=== PATIENT | female | born 1990 | race Caucasian/White ===

== ENCOUNTER 2020-03-05 09:49 | Outpatient (CLI) | payer OTHER, SELFPAY ==
[2020-03-05 11:00] LABS: Beta HCG Quantitative 28.32 mIU/ML
[2020-03-09 05:43] LABS: Progesterone 20.2 ng/mL (***)
== END 2020-03-05 09:50 | disposition home or self-care (01) ==
PROVIDERS: PCP Family Medicine; Visit Provider Obstetrics & Gynecology
DX: Z32.00 Encounter for pregnancy test, result unknown (principal)
CPT/HCPCS: 36415; 84144; 84702

== ENCOUNTER 2020-03-12 08:00 | Outpatient (CLI) | payer OTHER, SELFPAY | END 2020-03-12 08:01 | disposition home or self-care (01) | PROVIDERS: PCP Family Medicine; Visit Provider Obstetrics & Gynecology | DX: Z32.00 Encounter for pregnancy test, result unknown (principal) | CPT/HCPCS: 36415; 84702 ==

== ENCOUNTER 2020-11-07 04:58 | Inpatient (IN) | payer OTHER, SELFPAY ==
[2020-11-07] VITALS (48 sets, daily range): BP systolic 90–133; BP diastolic 48–87; PULSE 74–154; RESP 15–18; TEMP 36.6–37.1; O2SAT 96–99; BMI 30.9
--- NOTE | 2020-11-07 05:23 | LDADM ---
This patient, Chela Tirado, was admitted to Labor/Delivery/Recovery 105 on 11/07/20 at 04:58. Plans for labor, pain management and were discussed with patient. Patient/family oriented to hospital policies and general routines including ID bracelet, bed and alarms, visiting hours, pain management, procedures, bathroom and other care routines, personal items, smoking policy, room service/diet and guest tray routines, security routines, and visiting hours. Patient/Family are encouraged to report perceived risks to care and to ask questions if they do not understand what they are told or what they should do. See OBIX for further documentation.
[2020-11-07] MEDS: ceFAZolin 2 GM/D5W 50 ML 2 GM/50 ML BAG IVPB (05:27)
[2020-11-07 05:31] LABS: Basophils Percent Auto 0.4 % (0.2-1.2); Eosinophils Absolute Auto 0.2 K/mm3 (0-0.3); Eosinophils Percent Auto 1.5 % (0-4.4); Hematocrit 38.2 % (37.0-47.0); Hemoglobin 12.5 g/dL (12.0-15.0); Immature Granulocyte Absolute 0.06 K/mm3 (0.00-0.031); Immature Granulocyte Percent A 0.6 % (0-0.5); Lymphocytes Absolute Auto 2.73 K/mm3 (0.9-3.2); Lymphocytes Percent Auto 26.4 % (18.3-44.2); Mean Corpuscular HGB Conc 32.7 g/dl (32-36); Mean Corpuscular Hemoglobin 30.8 pg (26-34); Mean Corpuscular Volume 94.1 fl (80-100); Mean Platelet Volume 12.1 fl (7.4-10.4); Monocytes Absolute Auto 0.7 K/mm3 (0.1-0.6); Monocytes Percent Auto 6.8 % (2.6-8.5); Neutrophils Absolute Auto 6.7 K/mm3 (1.3-6.7); Neutrophils Percent Auto 64.3 % (45.5-73.1); Platelet Count Result 154 k/mm3 (150-375); Red Blood Count 4.06 M/mm3 (4.2-5.4); Red Cell Distribution Width 14.2 % (11.5-14.5); White Blood Count 10.3 K/mm3 (4.5-10.0)
[2020-11-07] MEDS: LACTATED RINGERS 1,000 ML 125 ML IV CONT ×2 (05:33→07:45)
[2020-11-07] MEDS: OXYTOCIN 30 UNITS/NS 500 ML 30 UNITS/500 ML BAG IV CONT (05:46)
[2020-11-07] MEDS: FAMOTIDINE 20 MG/2 ML VIAL IV PUSH (06:47)
--- NOTE | 2020-11-07 07:30 | WPDANESEPP ---
Anes - Eval Pre Procedure Procedure: labor epidural Date/Time: 11/07/20 07:30 Surgeon: lisa Pre Op Diagnosis: Induction Patient Data Age: 30 Gender: F Height: 1.68 m Weight: 87 kg Last Vital Signs Temp 36.7 C 11/07/20 06:30 Pulse 94 11/07/20 07:15 BP 127/81 11/07/20 07:15 Allergies Allergy/AdvReac Type Severity Reaction Status Date / Time hydrocodone Allergy Mild rash Verified 10/15/20 12:33 Penicillins Allergy Mild rash Verified 10/15/20 12:33 Home Medications Medication Instructions Recorded Confirmed Type prenat.vits,brian,hsw-idam-lagcv 1 tablet PO HS 10/15/20 10/15/20 History [ #2] Laboratory Tests 11/07/20 11/07/20 11/07/20 05:24 05:24 05:24 WBC 10.3 K/mm3 H K/mm3 (4.5-10.0) RBC 4.06 M/mm3 L M/mm3 (4.2-5.4) Hgb 12.5 g/dL g/dL (12.0-15.0) Hct 38.2 % % (37.0-47.0) MCV 94.1 fl fl (80-100) MCH 30.8 pg pg (26-34) MCHC 32.7 g/dl g/dl (32-36) RDW 14.2 % % (11.5-14.5) Plt Count 154 k/mm3 k/mm3 (150-375) MPV 12.1 fl H fl (7.4-10.4) Immature Gran % (Auto) 0.6 % H % (0-0.5) Neut % (Auto) 64.3 % % (45.5-73.1) Lymph % (Auto) 26.4 % % (18.3-44.2) [place] % (Auto) 6.8 % % (2.6-8.5) Eos % (Auto) 1.5 % % (0-4.4) Baso % (Auto) 0.4 % % (0.2-1.2) Lymph # (Auto) 2.73 K/mm3 K/mm3 (0.9-3.2) [place] # (Auto) 0.7 K/mm3 H K/mm3 (0.1-0.6) Eos # (Auto) 0.2 K/mm3 K/mm3 (0-0.3) Baso # (Auto) 0.0 K/mm3 K/mm3 (0.0-0.1) Abs Immat Gran (auto) 0.06 K/mm3 H K/mm3 (0.00-0.031) Absolute Neuts (auto) 6.7 K/mm3 K/mm3 (1.3-6.7) Absolute Nucleated RBC 0.0 K/mm3 K/mm3 (0.0-0.012) Nucleated RBC % 0.0 % % (0.0-0.2) RPR Pending Blood Type A Positive Antibody Screen Negative Patient hx anesthesia problems: none Family hx anesthesia problems: none [facility] Family History Family History (Updated 10/15/20 @ 12:37 by Minnie Somers RN) Father Hypertension High cholesterol Grandparent Hypertension Metastatic breast cancer Uterine cancer Acute leukemia Heart disease Social History Social History Smoking status: Never smoker Substance use: never Spiritual care concerns: No Exam Day of Procedure 11/07/20 07:30
--- NOTE | 2020-11-07 08:45 | WPDOBADMIT ---
Obstetrics - Admit Note Admission Note: record reviewed. Additions to the history and/or subsequent changes in the physical findings follow. 30 y/o at 39 weeks here for induction of labor. GBS pos. AVSS NST reactive TOCO: contractions every 2-5 min ABD soft, nontender, gravid, vertex EXT nontender Cervix 4/50/-2. AROM with clear fluid. Vertex. A: IUP at 39 weeks with favorable cervix. GBS pos. P: Ancef. Oxytocin. Anticipate .
[2020-11-07 09:49] LABS: Rapid Plasma Reagin Non-Reactive (NonReactive)
--- NOTE | 2020-11-07 10:49 | PM.OBPRVD ---
OB - Delivery Note Procedure Delivery date: 11/07/20 Procedure: Induction of labor with Induction method: AROM and per pitocin protocol Delivery augmentation: pitocin Delivery monitor: external FHT and external uterine Route of delivery: Laceration Description: Perineal - 2nd Degree Delivery repair: vicryl (3-0) Specimen: Yes (cord blood, placenta) Quantitative Blood Loss (ml): 115 Anesthesia type: Epidural Disposition: PACU Complications: None Narrative: 30 y/o at 39 weeks gestation who presented to the hospital for induction of labor. Oxytocin was administered intravenously. She received Ancef intravenously for GBS colonization. Amniotomy was performed with return of clear fluid. She received an epidural for pain control. Her labor progressed and her cervix dilated completely. She pushed with good effort and delivered the infant's head to the perineum, followed by the body. The nose and mouth were bulb suctioned. After a delay, the cord was clamped and cut. The was handed off the field. Cord blood was collected. The placenta delivered spontaneously and was grossly normal in appearance. The usual 3 vessel cord was noted. A second degree midline perineal laceration was sustained. This was reapproximated using 3 0 Vicryl in the usual layered fashion. Excellent hemostasis resulted as did excellent reapproximation of the normal anatomy. Needle and instrument counts were correct. The patient was taken to recovery room in stable condition. The went to the nursery in stable condition. I was present and scrubbed for the entire delivery. Baby Date of : 11/07/20 Time of : 13:08 Weeks of gestation at delivery: 39 Infant gender: Female Weight (pounds): 9 Weight (ounces): 9 presentation: vertex position: Right Occiput Anterior Placenta delivery description: Spontaneous and Normal Configuration cord vessel description: 3 Vessels and Delayed Cord Clamping score one minute: 9 score five minutes: 9
[2020-11-07] MEDS: OXYTOCIN 30 UNITS/NS 500 ML 30 UNITS/500 ML BAG 125 UNITS IV CONT (11:00)
[2020-11-07] MEDS: BENZOCAINE 20% AER SPR (*SP) 56 GM CAN 1 SPRAY TOPICAL (12:33)
[2020-11-07] MEDS: WITCH HAZEL 40 PADS 1 PAD TOPICAL (12:33)
--- NOTE | 2020-11-07 13:06 | OBPPTRN ---
Patient transferred to post room # 285 via wheelchair. Support person present. Oriented to unit, room, information board, rooming in, admission packet and security measures. Patient verbalizes understanding.
--- NOTE | 2020-11-07 13:12 | PM.OBDSVD ---
DS: Admitting Diagnosis Admitting Diagnosis Admitting Diagnosis: IUP at 39 weeks GBS colonization Favorable cervix DS: Discharge Diagnosis Discharge Diagnosis (1) (normal spontaneous vaginal delivery): Code(s): O80 - Encounter for full-term uncomplicated delivery Status: Acute (2) GBS (group B Streptococcus carrier), +RV culture, currently : Code(s): O99.820 - Streptococcus B carrier state complicating Status: Acute OB - DS: Summary OB Procedures : None OB Procedures Intrapartum: Spontaneous Vag Delivery OB Procedures: : None DS: Data Data Completed and Pending Labs on day of discharge: Labs from last 24 hours 11/07/20 11/07/20 11/07/20 05:24 05:24 05:24 WBC 10.3 H RBC 4.06 L Hgb 12.5 Hct 38.2 MCV 94.1 MCH 30.8 MCHC 32.7 RDW 14.2 Plt Count 154 MPV 12.1 H Immature Gran % (Auto) 0.6 H Neut % (Auto) 64.3 Lymph % (Auto) 26.4 [place] % (Auto) 6.8 Eos % (Auto) 1.5 Baso % (Auto) 0.4 Lymph # (Auto) 2.73 [place] # (Auto) 0.7 H Eos # (Auto) 0.2 Baso # (Auto) 0.0 Abs Immat Gran (auto) 0.06 H Absolute Neuts (auto) 6.7 Absolute Nucleated RBC 0.0 Nucleated RBC % 0.0 RPR Non-reactive Blood Type A Positive Antibody Screen Negative Discharge Plan Discharge Attending physician on discharge: Regan Hernandez Discharging Clinician: Regan Heranndez Patient Disposition: Home, Self-Care Activity: pelvic rest Diet: regular Discharge Instructions: Education: Mom and Baby Guide Given to: Mother Follow-Up: Call your delivering provider's office for an appointment to be seen in: 6 Weeks Mom and baby should come [facility] for the follow-up appointment. Appointment Date/Time: November 09, 2020 at 12:00 pm What to expect at your follow-up visit: Blood Pressure Check Physical Assessment Call [phone] if you are unable to keep your appointment time. BREAST CARE: * Wear a snug supportive bra. * For engorgement discomfort: Breast Feeding: * Apply warm moist washcloths * Express milk as needed to relieve engorgement * Wear loose clothing * For sore nipples: * Identify correct latch-on * Apply warm moist washcloths before and after nursing * Air dry nipples after nursing * May apply Lansinoh cream to nipples EPISIOTOMY/PERINEAL CARE: * Until bleeding stops, use your jennie bottle after urinating * Change your pad frequently throughout the day * You may take sitz baths several times a day (fill your bathtub with warm water and soak for 20 minutes.) Do NOT bathe in the water * No tub baths until seen by your physician - You may shower ACTIVITY: * Rest as much as possible. * Do not exercise or lift anything heavier than your baby (such as laundry or other children.) * Avoid stairs or driving as much as possible. * Do not put anything into the vagina. No douching, tampons, or sexual activity until seen by physician. NOTIFY PHYSICIAN IF YOU HAVE ANY QUESTIONS OR IF ANY OF THE FOLLOWING SYMPTOMS OCCUR: * If your vaginal area becomes red, swollen, or more painful than what you have experienced in the hospital. * If your vaginal bleeding becomes foul smelling. * If your vaginal bleeding becomes more heavy than a period or if your bleeding changes from pink to bright red. However, you may pass an occasional walnut-sized clot once or twice for the first week . * If you experience a sharp, shooting pain in your calves. * If you discover a hard, reddened area on your breast or if you experience flu-like symptoms. DIET: * Eat regular, well-balanced meals. * Drink plenty of fluids daily. If , drink to thirst. Call or return if temperature above 100.4? F, increased abdominal pain, increased vaginal bleeding or any new problems.
[2020-11-07] MEDS: IBUPROFEN 600 MG TABLET PO (15:59)
[2020-11-07] MEDS: ACETAMINOPHEN 325 MG TABLET 650 MG PO (19:36)
[2020-11-08] MEDS: IBUPROFEN 600 MG TABLET PO ×3 (00:06→18:38)
[2020-11-08 04:10] VITALS: BP 105/52; PULSE 75; RESP 16; TEMP 36.6; O2SAT 97
[2020-11-08] MEDS: ACETAMINOPHEN 325 MG TABLET 650 MG PO ×2 (04:15→12:40)
[2020-11-08 05:48] LABS: Hematocrit 35.3 % (37.0-47.0); Hemoglobin 11.9 g/dL (12.0-15.0)
--- NOTE | 2020-11-08 07:35 | WPDANLDPN2 ---
Anes-Prog Note L&D Date/Time: 11/08/20 07:35 Comfortable throughout: labor and delivery Neuraxial method: epidural Epidural/Spinal procedure site: tender Neuro status: Neuro function grossly intact. Cardiovascular status: normal Respiratory status: normal Airway patency: baseline Mental status: baseline Post-Op hydration status: normal Vital Signs: Last Vital Signs Temp 97.9 F 11/08/20 04:10 Pulse 75 11/08/20 04:10 Resp 16 11/08/20 04:10 BP 105/52 L 11/08/20 04:10 Pulse Ox 97 11/08/20 04:10 Pain score (VAS): 210 I/O: Intake & Output 11/07/20 11/07/20 11/08/20 15:59 23:59 07:59 Intake Total 1000 Output Total 306 Balance 694 Post-procedural complaints: none Patient feedback: Patient satisfied with anesthetic care.
[2020-11-08 08:15] VITALS: BP 108/65; PULSE 75; RESP 16; TEMP 37.1; O2SAT 98
[2020-11-08] MEDS: MULTIVIT/MIN/PREN/FOL AC/IRON TABLET 1 TAB PO (08:44)
[2020-11-08] MEDS: DOCUSATE SODIUM 100 MG CAPSULE PO (08:44)
[2020-11-08 08:45] VITALS: PULSE 75; RESP 16; O2SAT 98
--- NOTE | 2020-11-08 11:20 | PC.NURSE ---
Consult with pt., mother reports is eagerly latching without difficulties or discomfort. Mother stats she breastfed last child for several months. Reviewed infant feeding cues, frequencies, duration of feedings, feeding elimination flow sheet, and signs of adequate intake. Demonstrated stimulation techniques to wake infant for feeding. Reviewed signs of a correct latch, effective nursing and suck swallow ratio. Infant was[able/unable] to maintain latch without discomfort to mother. Nipple care reviewed. Instructed mother to call out for RN assistance if she is unable to latch infant for feeding or she has discomfort with nursing. Instructed feeding should be initiated three hours from start of last feeding or if feeding cues are noted before. Mother voiced understanding of information shared.
[2020-11-08] MEDS: oxyCODONE/ACETAMINOPHEN (*CRX) 5-325 MG TABLET 1 TABLET PO (13:14)
--- NOTE | 2020-11-08 16:00 | PC.NURSE ---
Mother called out for observation of feeding. Reviewed infant feeding cues, frequencies, duration of feedings, feeding elimination flow sheet, and signs of adequate intake. Demonstrated stimulation techniques to wake for feeding. Mother has to breast in slightly shallow latch reporting slight pinching. Suggested mother release latch. Reviewed positioning/alignment in cross cradle, holding breast in ?U? hold and guided asymmetrical latch on. able to latch correctly. Infant nursed eagerly, with steady draws and frequent swallowing noted. Reviewed signs of a correct latch, effective nursing and suck swallow ratio. Infant would slip to shallow latch, mother reports tenderness. Demonstrated how to adjust latch more deeply while feeding. Mother reports she can feel change in latch and has no tenderness. Nipple care reviewed of lanolin after feedings, warm compresses and gel pads as needed. Suggested mother stimulate while feeding to increase stimulate, increase intake and to assist with maintaining deep latch. Instructed mother to call out for RN assistance if she is unable to latch for feeding or she has discomfort with nursing. Instructed feeding should be initiated three hours from start of last feeding or if feeding cues are noted before. Mother voiced understanding of information shared. Mother states she feels confident to continue effective at home. Reviewed transition to breast milk, signs of adequate intake, and engorgement/relief. Instructed to call ICP if intake/output less than required. Reviewed regular medications mother is taking. Information provided per [facility]. Reviewed community resources on the [facility] website and in the Mom/Baby guide. Information on outpatient services provided. Mother has no further questions at this time.
--- NOTE | 2020-11-08 18:29 | PM.OBPNVD ---
OB - PN: Subj Subjective Date/time seen: 11/08/20 18:29 Narrative: Pain OK. Would like to go home. OB - PN: Obj Data Labs CBC & Chem 7: 11/08/20 04:23 Labs: Laboratory Results - last 24 hr 11/08/20 04:23 Hgb 11.9 L Hct 35.3 L OB - PN A/P Plan Comments: A: PPD#1, doing well. P: Home to f/u 6 weeks. Exam Psych: Other: AVSS ABD soft, nontender, fundus firm EXT nontender
[2020-11-09 12:32] VITALS: BP 116/69; PULSE 66; RESP 14; TEMP 37; O2SAT 98
== END 2020-11-08 19:21 | disposition home or self-care (01) | DRG 807 ==
LOC: ANHLDR 05:08 → ANHOB2 13:09
PROVIDERS: Admitting Provider Obstetrics & Gynecology; PCP Family Medicine; Visit Provider Obstetrics & Gynecology
DX: O99.824 Streptococcus B carrier state complicating childbirth (principal); Z37.0 Single live birth; O70.1 Second degree perineal laceration during delivery; Z3A.39 39 weeks gestation of pregnancy
CPT/HCPCS: 36415; 85014; 85018; 85025; 86592; 86850; 86900; 86901; A9270; J0690; J2590; J2795; J7120

== ENCOUNTER 2024-12-12 10:08 | Observation (INO) | payer OTHER, SELFPAY ==
[2024-12-12] VITALS (7 sets, daily range): BP systolic 99–114; BP diastolic 57–78; PULSE 86–97; RESP 16; O2SAT 98; BMI 29.8
--- OUTSIDE RECORDS SUMMARY | 2024-12-12 10:18 | XMS_ITS | Clinical Summary ---
Author Organization [facility] Address [address] [place] [address] Phone Care Team Providers Care Liner Installer Name Role Phone Gala Marin Primary Care Provider + Allergies Active Allergy Reactions Criticality Noted Date Comments Hydrocodone Hives Reaction: hives, Penicillin G Hives Reaction: hives, Medications Multiple Vitamin (MULTIVITAMIN PO) Take by mouth. Active Active Problems No known active problems Immunizations Immunization Administration Dates Next Due DT Vaccine 01/06/2006,01/19/2003 DTAP/HIB COMBINED VACCINE 06/17/1993 DTAP/HIB/IPV COMBINED VACCINE 10/09/1997 ,03/06/1994,05/01/1993,01/31 Hepatitis A Vaccine 07/05/2012,11/03/2011 Hepatitis B Vaccine 06/17/1993,1992,1992 Human Papillomavirus Vaccine (HPV), quadrivalent 07/14/2007,03/09/2007,01/07/2007 Influenza Vaccine, Quadrivalent, PF 06/17/2021,1 06/27/2019,04/15/2019 MMR Vaccine 10/09/1997,11/28/1993 MMR/Varicella Combined Vaccine 11/03/2011,1998 Meningococcal Polysaccharide Vaccine (MPSV4) 01/07/2007 TB Skin Test 01/21/2021 TDAP Vaccine 09/29/2020, 9,03/17/2017,01/06 Family History Medical History Relation Name Comments High Cholesterol Father High Cholesterol Mother Cancer Paternal Grandfather leukemi a Relation Name Status Comments Father Alive Maternal Grandfather Alive Maternal Grandmother Alive Mother Alive Paternal Grandfather Paternal Grandmother Alive Social History Tobacco Use Types Packs/Day Years Used Date Smoking Tobacco: Never Smokeless Tobacco: Never Tobacco Cessation:Counseling Given: Not Answered Alcohol Use Standard Drinks/Week Comments Yes 0 (1 standard drink = 0.6 oz pur e alcohol) PHQ-2 Answer Date Recorded Total Score - Questions 1-9 0 07/2019 Education Answer Date Recorded What is the highest level of school you have completed or the highest degree you have received? Associate degree: academic program 03/26/2023 Sexually Active Control Partners Comments Yes Comments No Sex and Gender Information Value Date Recorded Sex Assigned at Not on file Legal Sex Female 10:17 PM CDT Gender Identity Not on file Sexual Orientation Not on file Last Filed Vital Signs Vital Sign Reading Time Taken Comments Blood Pressure 112/70 12/31/2023 11:32 AM CDT Pulse 87 12/31/2023 11:32 AM CDT Temperature 37.1 C (98.7 F) 12/31/2023 11:32 AM CDT Respiratory Rate 14 03/26/2023 2:49 PM CDT Oxygen Saturation 97% 12/31/2023 11:32 AM CDT Inhaled Oxygen Concentration - - Weight 71.2 kg (157 lb) 12/31/2023 11:32 AM CDT Height 167.6 cm (5' 6) 12/31/2023 11:32 AM CDT Body Mass Index 25.34 12/31/2023 11:32 AM CDT Plan of Treatment Upcoming Encounters Date Type Department Care Team (Late st Contact Info) Description 01/03/2025 10:30 AM CDT Office Visit [facility] - Family Medicine [facility] [address] [place] [address] Gala Marin, [place] [address] [place] [address] Health Maintenance Due Date Last Done Comments Pap Smear 2013 SARS-COV-2 Immunization ( season) 2024 02/15/2021, 01/24/2021 Influenza Immunization (#1) 01/30/202506/01, 04/27/2020, 04/15/2019 Cervical Cancer Screening (CCS) 08/18/2028 HPV/Cotest 08/18/2028 08/19/2023 DTaP/Tdap/Td Immunization (12 - Td or Tdap) 09/29/2030 09/29/2020, 10/01/2018, 03/17/2017, Additional history exists Respiratory Syncytial Virus (RSV) Immunization (Adult) (1 - 1-dose 75+ series) 10/29/2067 Hepatitis B Immunization Completed 994, 1992, 1992 Meningococcal Immunization (ACWY) Aged Out 01/07/2007 No longer eligible based on patient's age to complete this topic Human Papillomavirus (HPV) Immunization Completed 07/14/2007, 03/09/2007, 01/07/2007 Hepatitis C Virus (HCV) Screening Completed 12/31/2023 Pneumococcal Immunization Combined Aged Out No longer eligible based on patient's age to complete this topic Rotavirus Immunization Aged Out No lo nger eligible based on patient's age to complete this topic Procedures Procedure Name Priority Date/Time Associated Diagnosis Comments HEPATITIS C ANTIBODY Routine 12/31/2023 12:30 PM CDT Need for hepatitis C screening test from Last 3 Months or Most Recently Relevant to Health Maintenance Results * HEPATITIS C ANTIBODY (12/31/2023 12:30 PM CDT) hepatitis C antibody 0.11 <1 S/CO 12/31/2023 10:29 PM CDT [facility] Comment: Signal/Cutoff ratio < 0.79 is Nondetected Signal/Cutoff ratio 0.80-0.99 is Grayzone Signal/Cutoff ratio > 0.99 is Detected Supplemental assays are recommended if signal/cutoff ratio is >/=1.00. Signal/cutoff ratio result >/= 5.00 is 97% predictive of positivity for recombinant immunoblot assay (RIBA) and will be reported to the [place] Department of Public Health as required. Blood Venipuncture / Unknown 12/31/2023 12:30 PM CDT 12/31/2023 12:38 PM CDT Gala Marin PAC CHEMISTRY ORDERABLES Fin al Result [facility] [address] [place] [address], [place] from Last 3 Months or Most Recently Relevant to Health Maintenance [place] [address] [place] [address] Care Teams Liner Installer Relationship Specialty Start Date End Date Gala Marin PAC [address] [place] [address] PCP - General Physician Cost Specialist 12/31/23
--- OUTSIDE RECORDS SUMMARY | 2024-12-12 10:18 | XMS_ITS | Clinical Summary ---
Author Organization [facility] [employer] Address [address] [place] [place] [address] Care Team Providers Care Supervisor Intermediates Name Role Phone Massiel Tam MD Primary Care Provider [phone] Source Comments [facility] [employer],non-owned Affiliates and Associated Physician Practices is amultiple site organization consisting of ambulatory clinics and hospital sitesin [place], [place], [place] and [place]. This disclosure is being madepursuant to the Care Everywhere program and may not contain all information available regarding this patient. Last updated 18.[facility] [employer] Allergies Active Allergy Reactions Criticality Noted Date Comments Penicillins Rash Medium 10/01/2018 Hydrocodone-Acetaminophen Rash Medium 10/01/2018 Can take tylenol without reaction Immunizations Immunization Administration Dates Next Due TDAP (7yrs+) 09/29/2020,10/01/2018 Social History Tobacco Use Types Packs/Day Years Used Date Smoking Tobacco: Never Assessed Comments Unknown Sex and Gender Information Value Date Recorded Sex Assigned at Not on file Legal Sex Female 5:35 PM CDT Gender Identity Not on file Sexual Orientation Not on file Plan of Treatment Health Maintenance Due Date Last Done Comments HIV SCREENING 10/29/2007 HEPATITIS C SCREENING 10/24/2010 HEPATITIS B VACCINE (1 of 3 - 19+ 3-dose series) 10/29/2011 HPV VACCINE (1 - 3-dose SCDM series) 10/29/2019 COVID-19 VACCINE ( - 2023-2 5 season) 2024 DEPRESSION SCREENING 06/01/2024 INFLUENZA VACCINE (#1) 2025 , 04/15/2019 DTAP/TDAP/TD VACCINES (3 - T d or Tdap) 09/29/2030 09/29/2020, 10/01/2018 ZOSTER VACCINE (1 of 2) 2042 HIB VACCINE Aged Out No longer eligi ble based on patient's age to complete this topic MENINGOCOCCAL (Group B) VACCINE SHARED DECISION-MAKING Aged Out No longer eligible based on patient's age to complete this topic MENINGOCOCCAL GROUPS A/C/Y/W VACCINE Aged Out No longer eligible b ased on patient's age to complete this topic PNEUMOCOCCAL VACCINE Aged Out No long er eligible based on patient's age to complete this topic Insurance [facility] Care Teams Supervisor Intermediates Relationship Specialty Start Date End Date Massiel Tam MD PCP - General Family Medicine 10/01/18
--- OUTSIDE RECORDS SUMMARY | 2024-12-12 10:18 | XMS_ITS | Clinical Summary ---
Author Organization [facility] A Address [address] [place] [address] Care Team Providers Care Promotion Producer Name Role Phone Jeovany Richter MD Primary Care Provider + Allergies Active Allergy Reactions Criticality Noted Date Comments Hydrocodone Hives Reaction: hives, Penicillin G Hives Reaction: hives, Medications norgestimate-eth inyl estradiol (ORTHO TRI-CYCLEN LO, 28,) 0.18/0.215/0.25 mg-25 mcg per tablet take 1 tablet by oral route every day 1 Package 13 04/06/2014 Active Active Problems No known active problems Immunizations Immunization Administration Dates Next Due DT 01/06/2006,01/19/2003 DTaP / HiB 06/17/1993 DTaP / HiB / IPV 10/09/1997, 4,05/01/1993,01/31 HPV, Quadrivalent 07/14/2007,03/09/2007,01/08/20 07 Hep A, Adult 07/05/2012,11/03/2011 Hep B, Adolescent or Pediatric 06/17/1993,1992,1992 MMR 10/09/1997,11/28/1993 Meningococcal Polysaccharide (Menomune) 01/07/2007 Tdap 01/06/2006 Varicella 11/03/2011,07/20/1998 Surgical History Surgery Date Site/Laterality Comments OTHER SURGICAL HISTORY 2010 Dysmenorrhea: OCP's Medical History Medical History Date Comments Hx Other Medical 2010 Dysmenorrhea Family History Medical History Relation Name Comments Hyperlipidemia Father Hyperlipidemi a; Hyperlipidemia Maternal Grandfather Hyper lipidemia; Hypertension Maternal Grandfather Hyperte nsion; Coronary artery disease Maternal Grandmother Coronary artery disease, premature; Diabetes type II Maternal Grandmother Sonia betcady -Type 2; Hyperlipidemia Maternal Grandmother Hyper lipidemia; Other Maternal Grandmother Peptic ulcer disease; Hyperlipidemia Mother Hyperlipidemi a; Hypertension Mother Hypertension; Migraines Mother Migraines; Stroke Other Stroke; Leukemia Paternal Grandfather Cancer -leukemia; Relation Name Status Comments Father Maternal Grandfather Maternal Grandmother Mother Other Paternal Grandfather Social History Tobacco Use Types Packs/Day Years Used Date Smoking Tobacco: Never Tobacco Cessation:Counseling Given: Not Answered Alcohol Use Standard Drinks/Week Comments No 0 (1 standard drink = 0.6 oz pur e alcohol) Comments No Sex and Gender Information Value Date Recorded Sex Assigned at Not on file 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 Gender Identity Not on file Sexual Orientation Not on file Obstetrics History Last Filed Vital Signs Vital Sign Reading Time Taken Comments Blood Pressure 110/62 03/08/2024 1:20 PM CDT Pulse 78 03/08/2024 1:20 PM CDT Temperature 36.2 C (97.2 F) 03/08/2024 1:20 PM CDT Respiratory Rate 16 03/08/2024 1:20 PM CDT Oxygen Saturation 98% 03/08/2024 1:20 PM CDT Inhaled Oxygen Concentration - - Weight 70.3 kg (155 lb) 03/08/2024 1:20 PM CDT Height 167.6 cm (5' 6) 03/08/2024 1:20 PM CDT Body Mass Index 25.02 03/08/2024 1:20 PM CDT Plan of Treatment Health Maintenance Due Date Last Done Comments Depression Screening 1992 Hepatitis C Screening 1992 Regular Well Visit/Exam 18-64 2010 Cervical Cancer Screening 03/31/2014 03/31/2013 Covid-19 Vaccine ( season) 2024 02/15/2021, 01/24/2021 Influenza Vaccine (Season Ended) 2025 06/17/2021, 04/27/2020, 04/15/2019 DTaP/Tdap/Td Vaccine (12 - Td or Tdap) 09/29/2030 09/29/2020, 10/01/2018, 03/17/2017, Additional history exists Hepatitis B Screening Completed 06/17/1993 , 1992, 1992 HPV Vaccines Completed 07/14/2007, 01/2007, 01/07/2007 Varicella Vaccines Completed 11/03/2011, 0 11/03/2011, 07/20/1998, Additional history exists Pneumococcal vaccine <65 Aged Out No longer eligible based on patient's age to complete this topic Procedures Procedure Name Priority Date/Time Associated Diagnosis Comments THINPAP, REFLEX HPV ALL PTH Routine 03/31/2013 12:48 PM CDT from Last 3 Months or Most Recently Relevant to Health Maintenance Results * ThinPrep Pap, Reflex HPV all pth (03/31/2013 12:48 PM CDT) SOURCE: SEE NOTE [facility]OR[facility] RESULTS Comment:Cervix, Endocervix CLINICAL INFORMATION: SEE NOTE [facility] HISTORICAL RESULTS Comment:Normal exam LMP SEE NOTE [facility] HISTORICAL RESULTS Comment:02/18/13 Previous Pap SEE NOTE [facility] HISTORICAL RESULTS Comment:03/15/12 Prev. Bx SEE NOTE [facility] HISTORICAL RESULTS Comment:INFORMATION NOT PROV IDED Pap, specimen adequacy SEE NOTE [facility] HISTORICAL RESULTS Comment: Satisfactory for evaluation. Endocervical/transformation zone component present. HPV interp SEE NOTE [facility] HISTORICAL RESULTS Comment:Negative for intraep ithelial lesion or malignancy. Lactobacillus species SEE NOTE [facility] HISTORICAL RESULTS Comment: This Pap test has been evaluated with computer assisted technology. Edging Catcher SEE NOTE [facility] HISTORICAL RESULTS Comment:BKA, CT(ASCP) Review automotive parts counter person SEE NOTE [facility] HISTORICAL RESULTS Comment: ABC, CT(ASCP) Test performed at [employer] [address] Director: AIDEN MCCLENDON DO, MPH Infection: SEE NOTE [facility] HISTORICAL RESULTS Comment: Fungal organisms morphologically consistent with Belkis spp. 03/31/2013 12:4 8 PM CDT Megan Sylvester NP LAB PATHOLOGY ORDERABLES F inal Result [facility] HISTORICAL RESULTS from Last 3 Months or Most Recently Relevant to Health Maintenance Insurance [facility] AETNA SIGNATURE Care Teams Promotion Producer Relationship Specialty Start Date End Date Jeovany Richter MD [address] [facility] [place] [address] PCP - General Internal Medicine 01/16/17
--- OUTSIDE RECORDS SUMMARY | 2024-12-12 10:18 | XMS_ITS | Referral Summary ---
Author Organization [facility] Medical Office Building A Address [address] [place] [address] Care Team Providers Care Attorney General Name Role Phone Jeovany Richter MD Primary [...] Polysaccharide (Menomune) 01/07/2007 Tdap 01/06/2006 Varicella 11/03/2011,07/20/1998 Social History Tobacco Use Types Packs/Day Years Used Date Smoking Tobacco: Never Tobacco Cessation:Counseling Given: Not Answered Alcohol Use Standard Drinks/Week Comments No 0 (1 standard drink = 0.6 oz pur e alcohol) Comments No Sex and Gender Information Value Date Recorded Sex Assigned at Not on file Legal Sex Female 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 03/31/2013 12:4 8 PM CDT Megan Sylvester WHITE WASHER LAB PATHOLOGY ORDERABLES F inal Result [facility] HISTORICAL RESULTS from Last 3 Months or Most Recently Relevant to Health Maintenance Insurance [employer] AETNA SIGNATURE Care Teams Attorney General Relationship Specialty Start Date End Date Jeovany Richter MD [address] [facility] [address] [place] [address] PCP - General Internal Medicine 01/16/17
--- NOTE | 2024-12-12 11:10 | OBADM ---
This patient, Chela Tirado, admitted to the OB room OB Post 116 for observation. Patient/family oriented to hospital policies and general routines including ID bracelet, bed and alarms, visiting hours, pain management, procedures, bathroom and other care routines, personal items, smoking policy, room service/diet, and visiting hours. Patient/Family are encouraged to report perceived risks to care and to ask questions if they do not understand what they are told or what they should do.
[2024-12-12 11:27] LABS: Add Urine Microscopic? YES; Appearance Urine Cloudy (Clear); Glucose Urine UA Negative (Negative); Leukocyte Esterase Ur 3+ LEU/UL (Negative); Need Manual Microscopic Reviewed; Nitrate Urine Negative (Negative); Non Pathogenic Casts 0-2; Specific Grav Ur 1.003 (1.001-1.035)
--- NOTE | 2024-12-12 11:42 | PC.NURSE ---
12/12 @ 1138, notified dr gonzalez of pt arrival and C/O. ok to d/c
--- NOTE | 2024-12-15 18:24 | P.PNOB_ITS ---
OB - Triage/Final Diagnosis Visit Information Comments/Additional reasons for admission: I have assessed the risk for this patient, Chela Tirado, and determined that she would benefit from observation care. Evaluation Laboratory results: Laboratory Tests 12/12/24 11:02 Urine Color Yellow Urine Appearance Cloudy H Urine pH 7.5 Ur Specific [place] 1.003 Urine Protein Negative Urine Glucose (UA) Negative Urine Ketones Negative Ur Blood (Man) Negative Urine Nitrate Negative Urine Bilirubin Negative Urine Urobilinogen 0.2 Add Ur Microanalysis Reviewed Leukocyte Esterase Rfl 3+ H Urine RBC 0-2 Urine WBC 11-20 H Ur Squamous Epith Cells Occasional Urine Bacteria Rare Urine Casts 0-2 Final Diagnosis (1) Shortness of breath due to : Code(s): O26.899 - Other specified related conditions, unspecified trimester; R06.02 - Shortness of breath Status: Acute
== END 2024-12-12 11:55 | disposition home or self-care (01) ==
PROVIDERS: Admitting Provider Obstetrics & Gynecology; PCP Family Medicine; Visit Provider Obstetrics & Gynecology
DX: O26.899 Other specified pregnancy related conditions, unspecified trimester (principal); R06.02 Shortness of breath
CPT/HCPCS: 81001; 87086; G0378; G0379

== ENCOUNTER 2024-12-16 11:23 | Outpatient (CLI) | payer OTHER, SELFPAY ==
--- OUTSIDE RECORDS SUMMARY | 2024-12-16 11:43 | XMS_ITS | Clinical Summary ---
Author Organization [facility] Address [address] [facility] [place] [address] Care Team Providers Care Shredded Filler Cigar Maker Machine Name Role Phone Massiel Tam MD Primary Care Provider [phone] Source Comments [facility],non-owned Affiliates and Associated Physician Practices is amultiple site organization consisting of ambulatory clinics and hospital sitesin [place], [place], [place] and [place]. This disclosure is being madepursuant to the Care Everywhere program and may not contain all information available regarding this patient. Last updated 18.[facility] Allergies Active Allergy Reactions Criticality Noted Date [...] patient's age to complete this topic Insurance [facility], [facility] Care Teams Shredded Filler Cigar Maker Machine Relationship Specialty Start Date End Date Massiel Tam MD PCP - General Family Medicine 10/01/18
--- OUTSIDE RECORDS SUMMARY | 2024-12-16 11:43 | XMS_ITS | Referral Summary ---
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 03/31/2013 12:4 8 PM CDT Megan Sylvester SLP TEACHER LAB PATHOLOGY ORDERABLES F inal Result [facility] HISTORICAL RESULTS from Last 3 Months or Most Recently Relevant to Health Maintenance Insurance [email or web address] AETNA SIGNATURE Care Teams Dry Cleaning Machine Operator Relationship Specialty Start Date End Date Jeovany Richter MD [address] [facility] [place] [address] PCP - General Internal Medicine 01/16/17
--- OUTSIDE RECORDS SUMMARY | 2024-12-16 11:43 | XMS_ITS | Clinical Summary ---
Author Organization [facility] Address [address] [place] [address] Phone Care Team Providers Care Processing Mgr Name Role Phone Gala Marin Primary Care [...] Visit [facility] [address] [place] [address] Gala Marin, [address] [place] [address] Health Maintenance Due Date Last Done Comments [...] <1 S/CO 12/31/2023 10:29 PM CDT [facility] Comment: Signal/Cutoff ratio < 0.79 is Nondetected Signal/Cutoff ratio 0.80-0.99 is Grayzone Signal/Cutoff ratio > 0.99 is Detected Supplemental assays are recommended if signal/cutoff ratio is >/=1.00. Signal/cutoff ratio result >/= 5.00 is 97% predictive of positivity for recombinant immunoblot assay (RIBA) and will be reported to the [place] Department of Public Health as required. Blood Venipuncture / Unknown 12/31/2023 12:30 PM CDT 12/31/2023 12:38 PM CDT Gala Marin PAC CHEMISTRY ORDERABLES Fin al Result [facility] [address] [place] [address], [place] from Last 3 Months or Most Recently Relevant to Health Maintenance [place] [address] [place] [address] Care Teams Processing Mgr Relationship Specialty Start Date End Date Gala Marin PAC [address] [place] [address] PCP - General Physician Civil Preparedness Coordinator 12/31/23
--- OUTSIDE RECORDS SUMMARY | 2024-12-16 11:43 | XMS_ITS | Clinical Summary ---
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 03/31/2013 12:4 8 PM CDT Megan Sylvester NP LAB PATHOLOGY ORDERABLES F inal Result [facility] HISTORICAL RESULTS from Last 3 Months or Most Recently Relevant to Health Maintenance Insurance [facility] AETNA SIGNATURE Care Teams Soaking Room Operator Relationship Specialty Start Date End Date Jeovany Richter MD [address] [facility] [place] [address] PCP - General Internal Medicine 01/16/17
[2024-12-16 12:56] LABS: Add Urine Microscopic? YES; Appearance Urine Clear (Clear); Glucose Urine UA Negative (Negative); Leukocyte Esterase Ur 3+ LEU/UL (Negative); Nitrate Urine Negative (Negative); Non Pathogenic Casts 0-2; Specific Grav Ur 1.006 (1.001-1.035)
== END 2024-12-16 11:24 | disposition home or self-care (01) ==
PROVIDERS: Visit Provider Obstetrics & Gynecology
DX: N39.0 Urinary tract infection, site not specified (principal)
CPT/HCPCS: 81001

== ENCOUNTER 2025-01-19 18:41 | Observation (INO) | payer OTHER, SELFPAY ==
[2025-01-19] VITALS (31 sets, daily range): BP systolic 121–138; BP diastolic 75–82; PULSE 80–101; RESP 20; TEMP 36.6; O2SAT 98–100; BMI 31.3
--- OUTSIDE RECORDS SUMMARY | 2025-01-19 18:48 | XMS_ITS | Clinical Summary ---
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 03/31/2013 12:4 8 PM CDT Megan Sylvester NP LAB PATHOLOGY ORDERABLES F inal Result [facility] HISTORICAL RESULTS from Last 3 Months or Most Recently Relevant to Health Maintenance Insurance [facility] AETNA SIGNATURE Care Teams Can Closing Machine Operator Relationship Specialty Start Date End Date eJovany Richter MD [address] [facility] [place] [address] PCP - General Internal Medicine 01/16/17
--- OUTSIDE RECORDS SUMMARY | 2025-01-19 18:48 | XMS_ITS | Clinical Summary ---
Author Organization [facility] Address [address] [place] [address] Phone Care Team Providers Care Train Crew Member Name Role Phone Elsi Marinjimmie BENDER Primary Care Provider + Allergies Active Allergy Reactions Criticality Noted Date Comments Hydrocodone Hives Reaction: hives, Penicillin G Hives Reaction: hives, Medications Multiple Vitamin (MULTIVITAMIN PO) Take by mouth. Active Active Problems No known active problems Encounters Date Type Department Care Team Description 01/13/2025 1:40 PM CDT Immunization [facility] - Family [facility] [address] [place] [id number] Encounter for immunization (Primary Dx) Discharge Disposition: Discharged to home or Selfcare 01/13/2025 Travel from Last 3 Months Immunizations Immunization Administration Dates Next Due DT Vaccine 01/06/2006,01/19/2003 DTAP/HIB COMBINED VACCINE 06/17/1993 DTAP/HIB/IPV COMBINED VACCINE 10/09/1997 ,03/06/1994,05/01/1993,01/31 Hepatitis A Vaccine 07/05/2012,11/03/2011 Hepatitis B Vaccine 06/17/1993,1992,1992 Human Papillomavirus Vaccine (HPV), quadrivalent 07/14/2007,03/09/2007,01/07/2007 Influenza Vaccine, Quadrivalent, PF 06/17/2021,1 06/27/2019,04/15/2019 MMR Vaccine 10/09/1997,11/28/1993 MMR/Varicella Combined Vaccine 11/03/2011,1998 Meningococcal Polysaccharide Vaccine (MPSV4) 01/07/2007 TB Skin Test 01/21/2021 TDAP Vaccine 01/13/2025,,10/01/2018,03/17,01/06/2006 Family History Medical History Relation Name Comments [...] Care Team (Late st Contact Info) Description 04/14/2025 10:30 AM SCRUB TECH Office Visit [facility] [address] [place] [address] Tomas Gala Leyva, PAC [address] [place] [address] Health Maintenance Due Date Last Done Comments Pap Smear 2013 SARS-COV-2 Immunization ( season) 2024 02/15/2021, 01/24/2021 Influenza Immunization (#1) 01/30/202506/01, 04/27/2020, 04/15/2019 Cervical Cancer Screening (CCS) 08/18/2028 HPV/Cotest 08/18/2028 08/19/2023 DTaP/Tdap/Td Immunization (13 - Td or Tdap) 01/13/2035 01/13/2025, 09/29/2020, 10/01/2018, Additional history exists Respiratory Syncytial Virus (RSV) [...] <1 S/CO 12/31/2023 10:29 PM CDT [facility] Comment: Signal/Cutoff ratio < 0.79 is Nondetected Signal/Cutoff ratio 0.80-0.99 is Grayzone Signal/Cutoff ratio > 0.99 is Detected Supplemental assays are recommended if signal/cutoff ratio is >/=1.00. Signal/cutoff ratio result >/= 5.00 is 97% predictive of positivity for recombinant immunoblot assay (RIBA) and will be reported to the [place] Department of Public Health as required. Blood Venipuncture / Unknown 12/31/2023 12:30 PM CDT 12/31/2023 12:38 PM CDT us Gala Marin PAC CHEMISTRY ORDERABLES Fin al Result [facility] [address] [place] [address], from Last 3 Months or Most Recently Relevant to Health Maintenance Insurance Care Teams Train Crew Member Relationship Specialty Start Date End Date Gala Marin PAC [address] [place] [address] PCP - General Physician Retarder Operator 12/31/23
--- OUTSIDE RECORDS SUMMARY | 2025-01-19 18:48 | XMS_ITS | Clinical Summary ---
Author Organization [facility] Address [address] [facility] [place] [address] Care Team Providers Care Forming Tube Selector Name Role Phone Massiel Tam MD Primary Care Provider [phone] Source Comments [facility]non-owned Affiliates and Associated Physician Practices is amultiple site organization consisting of ambulatory clinics and hospital sitesin [place] and [place]. This disclosure is being madepursuant to the Care Everywhere program and may not contain all information available regarding this patient. Last updated 18.[facility] Allergies Active Allergy Reactions Criticality Noted Date [...] patient's age to complete this topic Insurance [facility] Address: [facility] [id number] [facility] [address] Care Teams Forming Tube Selector Relationship Specialty Start Date End Date Massiel Tam MD PCP - General Family Medicine 10/01/18
[2025-01-19] MEDS: ACETAMINOPHEN 500 MG TABLET 1000 MG PO (21:16)
[2025-01-19] MEDS: LACTATED RINGERS 1,000 ML 999 ML IV CONT (21:17)
--- NOTE | 2025-01-23 08:07 | PM.OBTRLD ---
OB - Triage/Final Diagnosis Visit Information Date of evaluation: 01/20/25 Reason for evaluation: threatened labor Comments/Additional reasons for admission: I have assessed the risk for this patient, Chela Tirado, and determined that she would benefit from observation care.
== END 2025-01-20 00:25 | disposition home or self-care (01) ==
PROVIDERS: Admitting Provider Obstetrics & Gynecology; PCP Family Medicine; Visit Provider Student in an Organized Health Care Education/Training Program
DX: O47.9 False labor, unspecified (principal)
CPT/HCPCS: A9270; G0378; G0379; J7120

== ENCOUNTER 2025-02-06 04:58 | Inpatient (IN) | payer OTHER, SELFPAY ==
[2025-02-06] VITALS (140 sets, daily range): BP systolic 92–215; BP diastolic 45–178; PULSE 70–220; RESP 16–18; TEMP 36.6–36.9; O2SAT 95–100
--- OUTSIDE RECORDS SUMMARY | 2025-02-06 05:03 | XMS_ITS | Clinical Summary ---
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 03/31/2013 12:4 8 PM CDT Megan Sylvester NP LAB PATHOLOGY ORDERABLES F inal Result [facility] HISTORICAL RESULTS from Last 3 Months or Most Recently Relevant to Health Maintenance Insurance [facility] AETNA SIGNATURE Care Teams Transport Tank Technician Relationship Specialty Start Date End Date Jeovany Richter MD [address] [facility] [place] [address] PCP - General Internal Medicine 01/16/17
[2025-02-06 05:36] LABS: Hematocrit 35.9 % (37.0-47.0); Hemoglobin 11.8 g/dL (12.0-15.0); Immature Granulocyte Percent A 0.6 % (0-0.5); Immature Platelet Fraction Pct 14.7 % (0.9-11.2); Lymphocytes Absolute Auto 2.01 K/mm3 (0.9-3.2); Mean Corpuscular HGB Conc 32.9 g/dl (32-36); Mean Corpuscular Hemoglobin 31.1 pg (26-34); Mean Corpuscular Volume 94.7 fl (80-100); Nucleated Red Blood Cells Absolute Auto 0.000 K/mm3 (0.0-0.012); Nucleated Red Blood Cells Perc 0.0 % (0.0-0.2); Platelet Count Result 151 k/mm3 (150-375); Red Blood Count 3.79 M/mm3 (4.2-5.4); White Blood Count 8.4 K/mm3 (4.5-10.0)
--- NOTE | 2025-02-06 06:03 | P.PNAN_ITS ---
Anes - Eval Pre Procedure Procedure: Labor epidural Date/Time: 02/06/25 06:03 Surgeon: Ara Preop Diagnosis: Abdominal pain with contractions Pre Op Diagnosis: IOL Patient Data Age: 34 Gender: F Height: Weight: Last Vital Signs Pulse 98 02/06/25 05:16 BP 130/86 02/06/25 05:16 Allergies Allergy/AdvReac Type Severity Reaction Status Date / Time hydrocodone Allergy Mild rash Verified 02/01/25 12:19 Penicillins Allergy Mild rash Verified 02/01/25 12:19 Home Medications ?Medication ?Instructions ?Recorded ?Confirmed ?Type prenat.vits,brian,lgn-[id number]-xwsvs 1 tablet PO HS 10/15/20 02/01/25 History calcium carbonate (Tums) 200 mg PO BID 12/26/2402/01 History Laboratory Tests 02/06/25 05:27 WBC 8.4 K/mm3 (4.5-10.0) RBC 3.79 L M/mm3 (4.2-5.4) Hgb 11.8 L g/dL (12.0-15.0) Hct 35.9 L % (37.0-47.0) MCV 94.7 fl (80-100) MCH 31.1 pg (26-34) MCHC 32.9 g/dl (32-36) RDW 14.1 % (11.5-14.5) Plt Count 151 k/mm3 (150-375) MPV 13.3 H fl (7.4-10.4) Immature Gran % (Auto) 0.6 H % (0-0.5) Neut % (Auto) 65.9 % (45.5-73.1) Lymph % (Auto) 23.9 % (18.3-44.2) Davis % (Auto) 7.6 % (2.6-8.5) Eos % (Auto) 1.5 % (0-4.4) Baso % (Auto) 0.5 % (0.2-1.2) Lymph # (Auto) 2.01 K/mm3 (0.9-3.2) Davis # (Auto) 0.6 K/mm3 (0.1-0.6) Eos # (Auto) 0.1 K/mm3 (0-0.3) Baso # (Auto) 0.0 K/mm3 (0.0-0.1) Abs Immat Gran (auto) 0.05 H K/mm3 (0.00-0.031) Absolute Neuts (auto) 5.5 K/mm3 (1.3-6.7) Absolute Nucleated RBC 0.000 K/mm3 (0.0-0.012) Nucleated RBC % 0.0 % (0.0-0.2) % Immature Plt Fraction 14.7 H % (0.9-11.2) : gestational age HCG: positive Patient hx anesthesia problems: none Family hx anesthesia problems: none Results Review: All pre-operative results and documents have been reviewed as part of the pre- operative evaluation. [facility] Past Medical History Medical History (Updated 02/06/25 @ 06:04 by Ismael Martinez Jr., CRNA) Surgical History Surgical History Omer teeth removed History of dilatation and curettage Family History Family History (Updated 02/01/25 @ 12:01 by Leslie Thompson RN) Father High cholesterol Hypertension Grandparent Heart disease Metastatic breast cancer Hypertension Uterine cancer Acute leukemia Grandparent Diabetes mellitus Social History Social History Smoking status: Never smoker Second hand tobacco smoke exposure: No Substance use: never Do You Feel Safe in your Home?: Yes Lack of Transportation: No Lack of Food: Never True Current Housing: I Have Housing Concerned About Future Housing: No Difficulty Paying Gas/Electric Bills: No Difficulty Paying for Meds: No Currently Unemployed: No Education: Bachelor's Degree Difficulty w/ Childcare or Family Care: No Spiritual care concerns: No Exam Day of Procedure 02/06/25 06:03
[2025-02-06] MEDS: LACTATED RINGERS 1,000 ML 125 ML IV CONT (06:16)
[2025-02-06] MEDS: OXYTOCIN 30 UNITS/NS 500 ML 30 UNITS/500 ML BAG IV CONT (06:16)
[2025-02-06 07:51] LABS: Syphilis IgG/IgM Antibody Non-Reactive (Nonreactive)
--- NOTE | 2025-02-06 08:42 | P.HP_ITS ---
H&P: HPI History of Present Illness Date/Time: 02/06/25 08:42 Chief Complaint: Here for induction of labor Narrative: 34 y/o at 39 2/7 weeks here for induction of labor. GBS neg. She has delivered rapidly in the past, and has requested an early epidural. She is comfortable with epidural now. Review of Systems Review of Systems: All systems reviewed & are unremarkable except as noted in HPI and below PMFSH Past Medical History Medical History Surgical History Surgical History [place] teeth removed History of dilatation and curettage Family History Family History Father High cholesterol Hypertension Grandparent Heart disease Metastatic breast cancer Hypertension Uterine cancer Acute leukemia Grandparent Diabetes mellitus Social History Social History Smoking status: Never smoker Second hand tobacco smoke exposure: No Substance use: never Do You Feel Safe in your Home?: Yes Lack of Transportation: No Lack of Food: Never True Current Housing: I Have Housing Concerned About Future Housing: No Difficulty Paying Gas/Electric Bills: No Difficulty Paying for Meds: No Currently Unemployed: No Education: Bachelor's Degree Difficulty w/ Childcare or Family Care: No Spiritual care concerns: No Meds Home Medications and Allergies Home Medications ?Medication ?Instructions ?Recorded ?Confirmed ?Type prenat.vits,brian,qfa-zoel-fvflz 1 tablet PO HS 10/15/20 02/01/25 History calcium carbonate (Tums) 200 mg PO BID 12/26/2402/01 History Allergies Allergy/AdvReac Type Severity Reaction Status Date / Time hydrocodone Allergy Mild rash Verified 02/01/25 12:19 Penicillins Allergy Mild rash Verified 02/01/25 12:19 Vital Signs Vital Signs - 24 hr 02/06/25 05:16 02/06/25 06:35 02/06/25 06:40 Temperature Pulse Rate 98 Blood Pressure 130/86 Pulse Oximetry 99 100 02/06/25 06:45 02/06/25 06:50 02/06/25 06:55 Temperature 98 F Pulse Rate Blood Pressure Pulse Oximetry 99 99 99 02/06/25 07:00 02/06/25 07:05 02/06/25 07:10 Temperature Pulse Rate Blood Pressure Pulse Oximetry 100 100 100 02/06/25 07:15 02/06/25 07:22 02/06/25 07:24 Temperature Pulse Rate 76 110 H 98 Blood Pressure 128/73 144/86 H 145/71 H Pulse Oximetry 100 100 02/06/25 07:27 02/06/25 07:31 02/06/25 07:32 Temperature Pulse Rate 91 93 Blood Pressure 136/70 130/71 Pulse Oximetry 100 99 02/06/25 07:33 02/06/25 07:34 02/06/25 07:36 Temperature Pulse Rate 104 H 95 88 Blood Pressure 125/84 117/68 130/45 L Pulse Oximetry 02/06/25 07:37 02/06/25 07:39 02/06/25 07:42 Temperature Pulse Rate 77 85 Blood Pressure 122/56 L 125/69 Pulse Oximetry 99 99 02/06/25 07:45 02/06/25 07:47 02/06/25 07:48 Temperature Pulse Rate 82 80 Blood Pressure 108/50 L 102/52 L Pulse Oximetry 99 02/06/25 07:51 02/06/25 07:52 02/06/25 07:54 Temperature Pulse Rate 96 88 Blood Pressure 114/61 98/55 L Pulse Oximetry 98 02/06/25 07:57 02/06/25 08:00 02/06/25 08:02 Temperature Pulse Rate 81 83 Blood Pressure 97/73 L 110/60 Pulse Oximetry 99 98 02/06/25 08:03 02/06/25 08:06 02/06/25 08:07 Temperature Pulse Rate 98 93 Blood Pressure 126/80 147/70 H Pulse Oximetry 99 02/06/25 08:09 02/06/25 08:12 02/06/25 08:15 Temperature Pulse Rate 95 89 97 Blood Pressure 121/67 124/70 134/74 Pulse Oximetry 99 02/06/25 08:17 02/06/25 08:18 02/06/25 08:21 Temperature Pulse Rate 88 86 Blood Pressure 121/72 125/72 Pulse Oximetry 99 02/06/25 08:22 02/06/25 08:24 02/06/25 08:27 Temperature Pulse Rate 102 H 86 Blood Pressure 125/78 128/71 Pulse Oximetry 99 99 02/06/25 08:30 02/06/25 08:32 02/06/25 08:33 Temperature Pulse Rate 91 92 Blood Pressure 124/68 129/74 Pulse Oximetry 99 02/06/25 08:36 02/06/25 08:37 02/06/25 08:39 Temperature Pulse Rate 98 82 Blood Pressure 122/85 129/74 Pulse Oximetry 99 02/06/25 08:42 Temperature Pulse Rate 86 Blood Pressure 125/75 Pulse Oximetry 99 Exam Const: Other: Well-developed, well-nourished female in no acute distress. Neck: Other: Neck: Trachea midline, no thyromegaly or masses. Resp: Other: Lungs: Normal respiratory effort. Clear to auscultation bilaterally. Cardio: Other: Heart: Regular rate and rhythm with normal S1-S2. GI: Other: ABD: Soft, nontender, nondistended, gravid. No guarding or rebound tenderness. No hepatosplenomegaly. NST reactive. TOCO: contractions irregularly. : Other: Cervix: 4/50/-2. AROM with clear fluid. Vertex. Back/Spine/Pelvis: Other: Back: No CVA tenderness. Skin: Other: Skin: No lesions, rashes or ulcers noted. Extrem: Other: Extremities: nontender with no edema Psych: Other: Mental status grossly normal, with normal mood and affect. H&P: Results Labs Labs: Short CBC 02/06/25 Range/Units 05:27 WBC 8.4 (4.5-10.0) K/mm3 Hgb 11.8 L (12.0-15.0) g/dL Hct 35.9 L (37.0-47.0) % Plt Count 151 (150-375) k/mm3 Assessment and Plan Assessment and plan (1) Term : Code(s): Z34.90 - Encounter for supervision of normal , unspecified, unspecified trimester Status: Acute Assessment and Plan: A: IUP at 39 2/7 weeks with favorable cervix, desiring induction of labor. P: Oxytocin. Anticipate .
[2025-02-06] MEDS: CALCIUM CARBONATE (TUMS) 500 MG (200 MG ELEMENTAL) PO (09:13)
--- NOTE | 2025-02-06 12:00 | PM.OBPRVD ---
OB - Vaginal Delivery Note Procedure Delivery date: 02/06/25 Induction method: Per Pitocin Protocol Delivery augmentation: Rupture of Membranes Delivery monitor: External FHT and External Uterine Route of delivery: Episiotomy description: None Laceration Description: Perineal - 2nd Degree Delivery repair: vicryl (3-0) Specimen: Yes (cord blood) Quantitative Blood Loss (ml): 220 Anesthesia type: Epidural Disposition: PACU Complications: Other complications (Shoulder dystocia.) Narrative: 34 y/o at 39 2/7 weeks gestation who presented to the hospital for induction of labor. Oxytocin was administered intravenously. Amniotomy was performed with return of clear fluid. She received an epidural for pain control. Her labor progressed and her cervix dilated completely. She pushed with good effort and delivered the infant's head to the perineum. A shoulder dystocia was encountered. Fundal pressure and traction on the head were strictly avoided. She was asked to stop pushing. McRobert's maneuver was employed, and the posterior (left) shoulder was able to be grasped and rotated clockwise. The anterior shoulder delivered quickly, followed by the body. The nose and mouth were bulb suctioned. After a delay, the cord was clamped and cut. The infant was handed off the field. Cord blood was collected. The placenta delivered spontaneously and was grossly normal in appearance. The usual 3 vessel cord was noted. A second degree midline perineal laceration was sustained. This was reapproximated using 3 0 Vicryl in the usual layered fashion. Excellent hemostasis resulted as did excellent reapproximation of the normal anatomy. Needle and instrument counts were correct. The patient was taken to recovery room in stable condition. The infant went to the nursery in stable condition. I was present and scrubbed for the entire delivery. Pana Baby Date of : 02/06/25 Time of : 11:45 Gestational Age by Date: 39 gender: Female Weight (pounds): 9 Weight (ounces): 12 presentation: vertex position: Right Occiput Anterior Placenta delivery description: Spontaneous and Abnormal Configuration Cord Vessel Description: 3 Vessels and Delayed Cord Clamping
--- NOTE | 2025-02-06 12:01 | P.DS_ITS ---
DS: Admitting Diagnosis Discharge Date 02/07/25 Admitting Diagnosis IUP at 39 2/7 weeks DS: Discharge Diagnosis Discharge Diagnosis (1) (normal spontaneous vaginal delivery): Code(s): O80 - Encounter for full-term uncomplicated delivery Status: Acute OB - DS: Summary OB Procedures : None OB Procedures Intrapartum: Spontaneous Vag Delivery OB Procedures: : None Time Spent with Patient Time attestation: Total time spent providing and/or coordinating discharge services: DS: Data Data Completed and Pending Labs on day of discharge: Labs from last 24 hours 02/06/25 02/06/25 06:34 05:27 WBC 8.4 RBC 3.79 L Hgb 11.8 L Hct 35.9 L MCV 94.7 MCH 31.1 MCHC 32.9 RDW 14.1 Plt Count 151 MPV 13.3 H Immature Gran % (Auto) 0.6 H Neut % (Auto) 65.9 Lymph % (Auto) 23.9 Love % (Auto) 7.6 Eos % (Auto) 1.5 Baso % (Auto) 0.5 Lymph # (Auto) 2.01 Love # (Auto) 0.6 Eos # (Auto) 0.1 Baso # (Auto) 0.0 Abs Immat Gran (auto) 0.05 H Absolute Neuts (auto) 5.5 Absolute Nucleated RBC 0.000 Nucleated RBC % 0.0 % Immature Plt Fraction 14.7 H Syphilis IgG/IgM Ab Non-reactive Blood Type A Positive Antibody Screen Negative Discharge Plan Discharge Attending physician on discharge: Regan Hernandez Discharging Clinician: Regan Hernandez Patient Disposition: Home Activity: pelvic rest Diet: regular Discharge Instructions: Call or return if temperature above 100.4? F, increased abdominal pain, increased vaginal bleeding or any new problems. Patient Language: Romanian Stand Alone Forms: General Discharge Information Follow-up/Referrals: Regan Hernandez MD [Physician, UNIT COORDINATOR] - 6 Weeks Discharge Medications: New ibuprofen 600 mg tablet 600 mg PO Q6H PRN (Reason: cramps) Qty: 30 0RF Continued calcium carbonate [Tums] 200 mg calcium (500 mg) tablet,chewable 200 mg PO BID prenat.vits,brian,eun-vwxl-jzsji Tablet 1 tablet PO HS Date of admission: 02/06/25 04:58 Primary Care Provider: Yonatan,Massiel Admitting Provider: Regan Hernandez Attending physician on admission: Regan Hernandez Condition: Stable
[2025-02-06] MEDS: OXYTOCIN 30 UNITS/NS 500 ML 30 UNITS/500 ML BAG 125 UNITS IV CONT (12:19)
[2025-02-06] MEDS: IBUPROFEN 600 MG TABLET PO ×2 (13:34→19:30)
--- NOTE | 2025-02-06 13:47 | P.PNAN_ITS ---
Anes - Initial Pre Proc Eval Date/Time: 02/06/25 13:47 Surgeon: Regan Hernandez MD Pre Op Diagnosis: IOL Patient Data Age: 34 Gender: F Height: Weight: Last Vital Signs Temp 36.9 C 02/06/25 12:00 Pulse 77 02/06/25 13:45 BP 117/62 02/06/25 13:45 Pulse Ox 98 02/06/25 13:44 O2 Del Method Room Air 02/06/25 06:30 Allergies Allergy/AdvReac Type Severity Reaction Status Date / Time hydrocodone Allergy Mild rash Verified 02/01/25 12:19 Penicillins Allergy Mild rash Verified 02/01/25 12:19 Home Medications ?Medication ?Instructions ?Recorded ?Confirmed ?Type prenat.vits,brian,sqc-quco-bdpxa 1 tablet PO HS 10/15/20 02/01/25 History calcium carbonate (Tums) 200 mg PO BID 12/26/2402/01 History ibuprofen 600 mg tablet 600 mg PO Q6H PRN cramps #30 tabs 02/06/25 Rx Laboratory Tests 02/06/25 02/06/25 05:27 06:34 WBC 8.4 K/mm3 (4.5-10.0) RBC 3.79 L M/mm3 (4.2-5.4) Hgb 11.8 L g/dL (12.0-15.0) Hct 35.9 L % (37.0-47.0) MCV 94.7 fl (80-100) MCH 31.1 pg (26-34) MCHC 32.9 g/dl (32-36) RDW 14.1 % (11.5-14.5) Plt Count 151 k/mm3 (150-375) MPV 13.3 H fl (7.4-10.4) Immature Gran % (Auto) 0.6 H % (0-0.5) Neut % (Auto) 65.9 % (45.5-73.1) Lymph % (Auto) 23.9 % (18.3-44.2) [place] % (Auto) 7.6 % (2.6-8.5) Eos % (Auto) 1.5 % (0-4.4) Baso % (Auto) 0.5 % (0.2-1.2) Lymph # (Auto) 2.01 K/mm3 (0.9-3.2) [place] # (Auto) 0.6 K/mm3 (0.1-0.6) Eos # (Auto) 0.1 K/mm3 (0-0.3) Baso # (Auto) 0.0 K/mm3 (0.0-0.1) Abs Immat Gran (auto) 0.05 H K/mm3 (0.00-0.031) Absolute Neuts (auto) 5.5 K/mm3 (1.3-6.7) Absolute Nucleated RBC 0.000 K/mm3 (0.0-0.012) Nucleated RBC % 0.0 % (0.0-0.2) % Immature Plt Fraction 14.7 H % (0.9-11.2) Syphilis IgG/IgM Ab Non-reactive (Nonreactive) Blood Type A Positive Antibody Screen Negative : gestational age HCG: positive Patient hx anesthesia problems: none Family hx anesthesia problems: none Results Review: All pre-operative results and documents have been reviewed as part of the pre- operative evaluation. [facility] Past Medical History Medical History Surgical History Surgical History [place] teeth removed History of dilatation and curettage Family History Family History Father High cholesterol Hypertension Grandparent Heart disease Metastatic breast cancer Hypertension Uterine cancer Acute leukemia Grandparent Diabetes mellitus Social History Social History Smoking status: Never smoker Second hand tobacco smoke exposure: No Substance use: never Do You Feel Safe in your Home?: Yes Lack of Transportation: No Lack of Food: Never True Current Housing: I Have Housing Concerned About Future Housing: No Difficulty Paying Gas/Electric Bills: No Difficulty Paying for Meds: No Currently Unemployed: No Education: Bachelor's Degree Difficulty w/ Childcare or Family Care: No Spiritual care concerns: No Anes - Eval Final PreProcedure Day of Procedure 02/06/25 13:47 Patient weight: obese ASA classification: II Anesthetic plan: proceed Anesthesia type and monitoring: regional epidural and standard monitoring Results Review: All pre-operative results and documents have been reviewed as part of the pre- operative evaluation. Informed Consent: The patient's anesthetic plan and its attendant risks and benefits were discussed with the patient/family/POA. Questions were solicited and answers provided to the satisfaction of the patient/family/POA.
--- NOTE | 2025-02-06 17:28 | PC.NURSE ---
1645. Introductions were made, then consulted with patient to assess needs related to . Discussed with mother her plans to feed her infant and the experience so far. Mom states this is her 3rd baby and she breastfed her older two children. Observed mother latching infant to the left breast in cross cradle position. Infant was able to maintain an appropriate latch. Mother declines nipple pain/discomfort throughout feeding. Encouraged mother to keep awake and nursing at the breast for as long as baby desires. Mother taught to listen for swallowing during feedings. Encouraged mother to express any questions or concerns she has regarding feedings. Advised her to call out for a latch check or if she needs assistance waking or positioning baby. Reviewed the blue feeding worksheet for required output and feeding at least 8-12 times every 24 hours. Resources provided for inpatient and outpatient services with the feeding sheet, mom/baby guide, and name/number written on the communication board. Mother voiced understanding of information and will call if there is a request for assistance. Reported to the Primary RN?
[2025-02-06] MEDS: ACETAMINOPHEN 325 MG TABLET 650 MG PO (21:47)
[2025-02-07 00:17] VITALS: BP 131/79; PULSE 72; RESP 18; TEMP 36.3; O2SAT 97
[2025-02-07] MEDS: IBUPROFEN 600 MG TABLET PO ×2 (03:53→09:30)
[2025-02-07 04:06] VITALS: BP 143/88; PULSE 67; RESP 18; TEMP 36.5; O2SAT 98
[2025-02-07 05:07] LABS: Hematocrit 34.4 % (37.0-47.0); Hemoglobin 11.2 g/dL (12.0-15.0)
[2025-02-07] MEDS: ACETAMINOPHEN 325 MG TABLET 650 MG PO ×2 (06:10→13:10)
--- NOTE | 2025-02-07 08:06 | WPDANLDPN2 ---
Anes-Prog Note L&D Date/Time: 02/07/25 08:06 Comfortable throughout: labor and delivery Neuraxial method: epidural Epidural/Spinal procedure site: clean & non-tender Neuro status: Neuro function grossly intact. Cardiovascular status: normal Respiratory status: normal Airway patency: baseline Mental status: baseline Vital Signs: Last Vital Signs Temp 36.5 C 02/07/25 04:06 Pulse 67 02/07/25 04:06 Resp 18 02/07/25 04:06 BP 143/88 H 02/07/25 04:06 Pulse Ox 98 02/07/25 04:06 O2 Del Method Room Air 02/06/25 19:45 Pain score (VAS): 0 Patient feedback: Patient satisfied with anesthetic care.
[2025-02-07 08:15] VITALS: BP 116/65; PULSE 75; RESP 16; TEMP 37.1; O2SAT 97
--- NOTE | 2025-02-07 08:30 | PC.NURSE ---
Consulted with mother concerning needs and she shared her ability to independently latch infant optimally without pain. Mother is feeding appropriately for growth of and understands stimulating to eat if needed. Infant has had appropriate feedings in the last 24 hours meets the outcomes for weight, output, blood sugar and jaundice at this time. Reinforced understanding of signs of adequate intake, transition of stool, mastitis, responsive watching for feeding cues, community resources (declines [facility] referral), and when to call a provider using the resource of the feeding sheet along with the mom and baby guide. Patient has a breast pump for personal use. Mother voiced understanding of the information shared, is confident to continue effectively her infant at home, when to call for assistance, denies any additional assistance or education at this time. Reported to the Primary RN.
--- NOTE | 2025-02-07 08:51 | P.PNOB_ITS ---
OB - PN: Subj Subjective Date/time seen: 02/07/25 08:51 Narrative: Pain OK. Would like to go home. OB - PN: Obj Data Labs 02/07/25 04:16 Labs: Laboratory Results - last 24 hr 02/07/25 04:16 Hgb 11.2 L Hct 34.4 L OB - PN A/P Plan day: 1 Comments: A: PPD#1, doing well. P: Home to f/u 6 weeks. Exam 2 Psych: Other: AVSS ABD soft, nontender, fundus firm EXT nontender
[2025-02-07] MEDS: MULTIVIT/MIN/PREN/FOL AC/IRON TABLET 1 TAB PO (09:00)
[2025-02-08 09:09] VITALS: BP 133/76; PULSE 71; RESP 18; TEMP 37; O2SAT 100
== END 2025-02-07 13:25 | disposition home or self-care (01) | DRG 807 ==
LOC: ANHLDR 13:10 → ANHOB2 15:12
PROVIDERS: Admitting Provider Obstetrics & Gynecology; PCP Family Medicine; Visit Provider Obstetrics & Gynecology
DX: O70.1 Second degree perineal laceration during delivery (principal); Z37.0 Single live birth; O66.0 Obstructed labor due to shoulder dystocia; Z3A.39 39 weeks gestation of pregnancy
CPT/HCPCS: 36415; 85014; 85018; 85025; 85055; 86593; 86850; 86900; 86901; A9270; J2590; J2795; J7120

== ENCOUNTER 2025-02-12 18:25 | Inpatient (IN) | payer OTHER, SELFPAY ==
[2025-02-12] VITALS (101 sets, daily range): BP systolic 104–176; BP diastolic 60–98; PULSE 54–103; RESP 19; TEMP 36.8–36.9; O2SAT 92–99; BMI 28.6
--- OUTSIDE RECORDS SUMMARY | 2025-02-12 16:56 | XMS_ITS | Clinical Summary ---
Author Organization [facility] Address [address] [place] [address] Care Team Providers Care Community Development Technician Name Role Phone Massiel Tam MD Primary Care Provider [phone] Source Comments [facility],non-owned Affiliates and Associated Physician Practices is amultiple site organization consisting of ambulatory clinics and hospital sitesin [place], [place], [place] and [place]. This disclosure is being madepursuant to the Care Everywhere program and may not contain all information available regarding this patient. Last updated 18.[facility] Allergies Active Allergy Reactions Criticality Noted Date [...] VACCINE (1 - 3-dose SCDM series) 10/29/2019 DEPRESSION SCREENING 06/01/2024 COVID-19 VACCINE ( - 2023-2 5 season) 2025 INFLUENZA VACCINE (#1) 2025 , 04/15/2019 DTAP/TDAP/TD [...] to complete this topic Insurance [facility] Care Teams Community Development Technician Relationship Specialty Start Date End Date Massiel Tam MD PCP - General Family Medicine 10/01/18
--- OUTSIDE RECORDS SUMMARY | 2025-02-12 16:56 | XMS_ITS | Clinical Summary ---
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 03/31/2013 12:4 8 PM CDT Megan Sylvester NP LAB PATHOLOGY ORDERABLES F inal Result [facility] HISTORICAL RESULTS from Last 3 Months or Most Recently Relevant to Health Maintenance Insurance [facility] [employer] S[employer] Care Teams Simulation Technician Relationship Specialty Start Date End Date Jeovany Richter MD [id number] [place] [id number] PCP - General Internal Medicine 01/16/17
--- NOTE | 2025-02-12 17:17 | PC.NURSE ---
Called Dr. Cornejo with pt status. Informed of admission for headache and neck stiffness. BPs 167/95 and 176/97. Orders received for IV Labetalol. Call if BP is still elevated.
--- NOTE | 2025-02-12 17:35 | PC.NURSE ---
Called Dr. Cornejo. Informed of pulse 58-59. Hold Labetalol. Give Hydralazine 5mg IVP. Call with results.
[2025-02-12 17:36] LABS: Hematocrit 38.9 % (37.0-47.0); Hemoglobin 12.8 g/dL (12.0-15.0); Immature Granulocyte Percent A 0.4 % (0-0.5); Lymphocytes Absolute Auto 2.34 K/mm3 (0.9-3.2); Mean Corpuscular HGB Conc 32.9 g/dl (32-36); Mean Corpuscular Hemoglobin 30.6 pg (26-34); Mean Corpuscular Volume 93.1 fl (80-100); Nucleated Red Blood Cells Absolute Auto 0.000 K/mm3 (0.0-0.012); Nucleated Red Blood Cells Perc 0.0 % (0.0-0.2); Platelet Count Result 222 k/mm3 (150-375); Red Blood Count 4.18 M/mm3 (4.2-5.4); White Blood Count 10.3 K/mm3 (4.5-10.0)
[2025-02-12 17:48] LABS: Alanine Aminotransferase 39 U/L (6-35); Albumin Level 3.3 g/dL (3.5-5.1); Alkaline Phosphatase 111 U/L (38-126); Anion Gap 7 mmol/L (4-12); Aspartate Amino Transferase 35 U/L (14-36); Bilirubin,Total 0.3 mg/dL (0.2-1.3); Blood Urea Nitrogen 17 mg/dL (7-17); Calcium 8.4 mg/dL (8.4-10.2); Carbon Dioxide 23 mmol/L (22-30); Chloride 108 mmol/L (98-107); Estimated Glomerular Filt Rate > 60; Glucose 94 mg/dL (65-110); Potassium 4.1 mmol/L (3.4-5.0); Sodium 138 mmol/L (137-145); Total Protein 6.4 g/dL (6.3-8.2); Uric Acid 5.5 mg/dL (2.5-7.5)
--- NOTE | 2025-02-12 18:08 | PC.NURSE ---
Called Dr. Cornejo with BP. Orders received to give Labetalol 20mg. Heart rate 63. If BP remains >160/110, start Magnesium sulfate 4gm bolus, then 2gm/hr.
--- NOTE | 2025-02-12 18:23 | PC.NURSE ---
Called anesthesia to evaluate pt. Pt questioned spinal headache. Will come to evaluate.
--- NOTE | 2025-02-12 18:30 | PC.NURSE ---
Amelia @ pt bedside to assess for spinal headache. No new orders @ this time.
[2025-02-12] MEDS: LACTATED RINGERS 1,000 ML 75 ML IV CONT (18:39)
[2025-02-12] MEDS: MAGNESIUM SULF 4 GM/WATER100ML 4 GM/100 ML BAG IVPB (18:42)
--- NOTE | 2025-02-12 18:51 | P.CONS_ITS ---
HPI Data of Consult Date/Time: 02/12/25 18:51 Requesting Physician: Jose Cornejo MD Primary Care Provider: Massiel Tam, Consult Narrative Reason for consult: headache Narrative: Chela Tirado is a 34 year old female, 6 days post delivery. pt presents with headache & HTN. pt received an epidural for her labor & delivery experience. Epidural placed by Dr. Morrow, unremarkable insertion. pt without complaints during hospitalization. requested to see pt to r/o PDPH. headache symptomology not consistent with dural puncture. current blood pressures running 150's/90's. no further need for follow up from Anesthesiology identified. [facility] Past Medical History Medical History Surgical History Surgical History [place] teeth removed History of dilatation and curettage Family History Family History Father High cholesterol Hypertension Grandparent Heart disease Metastatic breast cancer Hypertension Uterine cancer Acute leukemia Grandparent Diabetes mellitus Social History Social History Smoking status: Never smoker Second hand tobacco smoke exposure: No Substance use: never Do You Feel Safe in your Home?: Yes Lack of Transportation: No Lack of Food: Never True Current Housing: I Have Housing Concerned About Future Housing: No Difficulty Paying Gas/Electric Bills: No Difficulty Paying for Meds: No Currently Unemployed: No Education: Bachelor's Degree Difficulty w/ Childcare or Family Care: No Spiritual care concerns: No Meds Home Medications and Allergies Home Medications ?Medication ?Instructions ?Recorded ?Confirmed ?Type prenat.vits,brian,iiw-tewn-qkano 1 tablet PO HS 10/15/20 02/01/25 History calcium carbonate (Tums) 200 mg PO BID 12/26/2402/01 History ibuprofen 600 mg tablet 600 mg PO Q6H PRN cramps #30 tabs 02/06/25 Rx Allergies Allergy/AdvReac Type Severity Reaction Status Date / Time hydrocodone Allergy Mild rash Verified 02/01/25 12:19 Penicillins Allergy Mild rash Verified 02/01/25 12:19 Vital Signs Vital Signs - 24 hr 02/12/25 17:06 02/12/25 17:15 02/12/25 17:30 Pulse Rate 55 L 62 61 Blood Pressure 167/95 H 176/97 H 173/95 H Pulse Oximetry 02/12/25 17:33 02/12/25 17:38 02/12/25 17:43 Pulse Rate Blood Pressure Pulse Oximetry 97 98 98 02/12/25 17:45 02/12/25 17:51 02/12/25 17:56 Pulse Rate 62 Blood Pressure 168/98 H Pulse Oximetry 99 98 02/12/25 18:00 02/12/25 18:01 02/12/25 18:06 Pulse Rate 59 L Blood Pressure 169/95 H Pulse Oximetry 99 98 02/12/25 18:07 02/12/25 18:11 02/12/25 18:15 Pulse Rate 58 L 60 Blood Pressure 166/94 H 172/89 H Pulse Oximetry 99 02/12/25 18:16 02/12/25 18:21 02/12/25 18:22 Pulse Rate 61 Blood Pressure 164/90 H Pulse Oximetry 97 97 02/12/25 18:26 02/12/25 18:30 02/12/25 18:31 Pulse Rate 61 Blood Pressure 157/90 H Pulse Oximetry 97 98 02/12/25 18:42 02/12/25 18:45 02/12/25 18:47 Pulse Rate 60 Blood Pressure 154/86 H Pulse Oximetry 99 98 Results Labs 02/12/25 17:25 02/12/25 17:25 Labs: Short CBC 02/12/25 Range/Units 17:25 WBC 10.3 H (4.5-10.0) K/mm3 Hgb 12.8 (12.0-15.0) g/dL Hct 38.9 (37.0-47.0) % Plt Count 222 (150-375) k/mm3 BMP 02/12/25 17:25 Sodium 138 Potassium 4.1 Chloride 108 H Carbon Dioxide 23 BUN 17 Creatinine 0.72 Glucose 94 Calcium 8.4 Liver Function 02/12/25 Range/Units 17:25 Total Bilirubin 0.3 (0.2-1.3) mg/dL AST 35 (14-36) U/L ALT 39 H (6-35) U/L Alkaline Phosphatase 111 (38-126) U/L Albumin 3.3 L (3.5-5.1) g/dL
[2025-02-12] MEDS: MAGNESIUM SULF 20GM/WATER500ML 500 ML 50 MG IV CONT (19:14)
[2025-02-12] MEDS: IBUPROFEN 600 MG TABLET PO (19:35)
[2025-02-12] MEDS: ACETAMINOPHEN 325 MG TABLET 650 MG PO (19:35)
--- NOTE | 2025-02-12 19:41 | LDADM ---
This patient, Chela Tirado, was admitted to OB Post 116 on 02/12/25 at 18:25. Plans for labor, pain management and were discussed with patient. Patient/family oriented to hospital policies and general routines including ID bracelet, bed and alarms, visiting hours, pain management, procedures, bathroom and other care routines, personal items, smoking policy, room service/diet and guest tray routines, infant security routines, and visiting hours. Patient/Family are encouraged to report perceived risks to care and to ask questions if they do not understand what they are told or what they should do. See OBIX for further documentation.
--- NOTE | 2025-02-12 20:20 | PC.NURSE ---
Breast pump and supplies brought to pt, education provided on how to use pump. Pt stated understanding, all questions and concerns answered.
--- NOTE | 2025-02-12 20:39 | PC.NURSE ---
Call received from Dr. Cornejo, pt update given on vitals and starting Mag per order after labetalol @ 1845. Tylenol and IBU orders put in for pt headache/neck pain pt rating 5/10, heating pad in use. Order received for Flexeril 5 mg once for headache/neck pain if needed. Amelia PETIT assessed pt and stated that it was not a spinal headache @ 1830.
[2025-02-13] VITALS (225 sets, daily range): BP systolic 109–142; BP diastolic 70–88; PULSE 59–100; RESP 16–20; TEMP 36.2–36.8; O2SAT 92–100
[2025-02-13] MEDS: CYCLOBENZAPRINE HCL 5 MG TABLET PO ×2 (00:54→15:06)
[2025-02-13] MEDS: IBUPROFEN 600 MG TABLET PO ×2 (02:09→08:54)
[2025-02-13] MEDS: ACETAMINOPHEN 325 MG TABLET 650 MG PO ×2 (02:09→14:42)
[2025-02-13] MEDS: MAGNESIUM SULF 20GM/WATER500ML 500 ML 50 MG IV CONT (05:30)
[2025-02-13] MEDS: LACTATED RINGERS 1,000 ML 75 ML IV CONT (07:49)
--- NOTE | 2025-02-13 07:50 | PM.IMHP ---
H&P: HPI History of Present Illness Date/Time: 02/13/25 07:50 Chief Complaint: headache preeclampsia Narrative: 34 Year old 013 who presented with complaint of neck stiffness and headache. Patient is after vaginal delivery on 02/06/2025. Upon evaluation on Labor and delivery, she was found to have severe range blood pressures. She denies any blood pressure issues in her . Review of Systems Constitutional: Constitutional: Reports headache(s) Eyes: Eyes: Denies blurry vision and Denies change in vision Cardiovascular: Cardiovascular: Reports chest pain, Denies leg edema, Denies palpitations, Denies dyspnea and Denies dyspnea on exertion Respiratory: Respiratory: Denies cough, Denies dyspnea and Denies dyspnea on exertion Gastrointestinal: Gastrointestinal: Denies abdominal pain, Denies constipation, Denies diarrhea, Denies nausea and Denies vomiting Genitourinary: Genitourinary: Denies hematuria, Denies urinary frequency, Denies dysuria, Denies pelvic pain, Denies urinary incontinence and Denies vaginal discharge Neurologic: Reports system reviewed and no additional complaints, except as documented Psychiatric: Psychiatric: Reports no additional psychiatric complaints Endocrine: Endocrine: Denies palpitations PMFSH Past Medical History Medical History Surgical History Surgical History [place] teeth removed History of dilatation and curettage Family History Family History Father High cholesterol Hypertension Grandparent Heart disease Metastatic breast cancer Hypertension Uterine cancer Acute leukemia Grandparent Diabetes mellitus Social History Social History Smoking status: Never smoker Second hand tobacco smoke exposure: No Substance use: never Do You Feel Safe in your Home?: Yes Lack of Transportation: No Lack of Food: Never True Current Housing: I Have Housing Concerned About Future Housing: No Difficulty Paying Gas/Electric Bills: No Difficulty Paying for Meds: No Currently Unemployed: No Education: Bachelor's Degree Difficulty w/ Childcare or Family Care: No Spiritual care concerns: No Meds Home Medications and Allergies Home Medications ?Medication ?Instructions ?Recorded ?Confirmed ?Type prenat.vits,brian,[id number] 1 tablet PO HS 10/15/20 02/12/25 History calcium carbonate (Tums) 200 mg PO BID 12/26/24 02/12/25 History ibuprofen 600 mg tablet 600 mg PO Q6H PRN cramps #30 tabs 02/06/25 02/12/25 Rx Allergies Allergy/AdvReac Type Severity Reaction Status Date / Time hydrocodone Allergy Mild rash Verified 02/12/25 22:24 Penicillins Allergy Mild rash Verified 02/12/25 22:24 Vital Signs Vital Signs - 24 hr 02/12/25 17:06 02/12/25 17:15 02/12/25 17:30 Temperature Pulse Rate 55 L 62 61 Respiratory Rate Blood Pressure 167/95 H 176/97 H 173/95 H Blood Pressure [Left Arm] Pulse Oximetry Oxygen Delivery 02/12/25 17:33 02/12/25 17:38 02/12/25 17:43 Temperature Pulse Rate Respiratory Rate Blood Pressure Blood Pressure [Left Arm] Pulse Oximetry 97 98 98 Oxygen Delivery 02/12/25 17:45 02/12/25 17:51 02/12/25 17:56 Temperature Pulse Rate 62 Respiratory Rate Blood Pressure 168/98 H Blood Pressure [Left Arm] Pulse Oximetry 99 98 Oxygen Delivery 02/12/25 18:00 02/12/25 18:01 02/12/25 18:06 Temperature Pulse Rate 59 L Respiratory Rate Blood Pressure 169/95 H Blood Pressure [Left Arm] Pulse Oximetry 99 98 Oxygen Delivery 02/12/25 18:07 02/12/25 18:11 02/12/25 18:15 Temperature Pulse Rate 58 L 60 Respiratory Rate Blood Pressure 166/94 H 172/89 H Blood Pressure [Left Arm] Pulse Oximetry 99 Oxygen Delivery 02/12/25 18:16 02/12/25 18:21 02/12/25 18:22 Temperature Pulse Rate 61 Respiratory Rate Blood Pressure 164/90 H Blood Pressure [Left Arm] Pulse Oximetry 97 97 Oxygen Delivery 02/12/25 18:26 02/12/25 18:30 02/12/25 18:31 Temperature Pulse Rate 61 Respiratory Rate Blood Pressure 157/90 H Blood Pressure [Left Arm] Pulse Oximetry 97 98 Oxygen Delivery 02/12/25 18:42 02/12/25 18:45 02/12/25 18:45 Temperature Pulse Rate 60 103 H Respiratory Rate Blood Pressure 154/86 H Blood Pressure [Left Arm] 154/86 H Pulse Oximetry 99 Oxygen Delivery 02/12/25 18:45 02/12/25 18:47 02/12/25 18:52 Temperature 98.4 F Pulse Rate Respiratory Rate 19 Blood Pressure Blood Pressure [Left Arm] Pulse Oximetry 98 99 Oxygen Delivery 02/12/25 18:57 02/12/25 19:00 02/12/25 19:02 Temperature Pulse Rate 60 Respiratory Rate Blood Pressure 144/80 H Blood Pressure [Left Arm] Pulse Oximetry 96 97 Oxygen Delivery 02/12/25 19:07 02/12/25 19:12 02/12/25 19:15 Temperature Pulse Rate 60 Respiratory Rate Blood Pressure 147/78 H Blood Pressure [Left Arm] Pulse Oximetry 97 96 Oxygen Delivery 02/12/25 19:17 02/12/25 19:22 02/12/25 19:27 Temperature Pulse Rate Respiratory Rate Blood Pressure Blood Pressure [Left Arm] Pulse Oximetry 98 96 96 Oxygen Delivery 02/12/25 19:30 02/12/25 19:32 02/12/25 19:37 Temperature Pulse Rate 61 Respiratory Rate Blood Pressure 140/83 Blood Pressure [Left Arm] Pulse Oximetry 97 96 Oxygen Delivery 02/12/25 19:43 02/12/25 19:45 02/12/25 19:48 Temperature Pulse Rate 60 Respiratory Rate Blood Pressure 145/89 H Blood Pressure [Left Arm] Pulse Oximetry 99 98 Oxygen Delivery 02/12/25 19:53 02/12/25 19:58 02/12/25 20:00 Temperature Pulse Rate 65 Respiratory Rate Blood Pressure 132/84 Blood Pressure [Left Arm] Pulse Oximetry 97 97 Oxygen Delivery 02/12/25 20:03 02/12/25 20:08 02/12/25 20:13 Temperature Pulse Rate Respiratory Rate Blood Pressure Blood Pressure [Left Arm] Pulse Oximetry 98 98 97 Oxygen Delivery 02/12/25 20:15 02/12/25 20:18 02/12/25 20:23 Temperature Pulse Rate 63 Respiratory Rate Blood Pressure 137/82 Blood Pressure [Left Arm] Pulse Oximetry 97 98 Oxygen Delivery 02/12/25 20:24 02/12/25 20:28 02/12/25 20:30 Temperature Pulse Rate 70 Respiratory Rate Blood Pressure 126/79 Blood Pressure [Left Arm] Pulse Oximetry 97 Oxygen Delivery Room Air 02/12/25 20:33 02/12/25 20:38 02/12/25 20:43 Temperature Pulse Rate Respiratory Rate Blood Pressure Blood Pressure [Left Arm] Pulse Oximetry 96 98 97 Oxygen Delivery 02/12/25 20:45 02/12/25 20:48 02/12/25 20:53 Temperature Pulse Rate 82 Respiratory Rate Blood Pressure 119/74 Blood Pressure [Left Arm] Pulse Oximetry 97 96 Oxygen Delivery 02/12/25 20:58 02/12/25 21:00 02/12/25 21:03 Temperature Pulse Rate 69 Respiratory Rate Blood Pressure 116/71 Blood Pressure [Left Arm] Pulse Oximetry 96 97 Oxygen Delivery 02/12/25 21:08 02/12/25 21:13 02/12/25 21:15 Temperature Pulse Rate 77 Respiratory Rate Blood Pressure 109/70 Blood Pressure [Left Arm] Pulse Oximetry 96 96 Oxygen Delivery 02/12/25 21:18 02/12/25 21:23 02/12/25 21:28 Temperature Pulse Rate Respiratory Rate Blood Pressure Blood Pressure [Left Arm] Pulse Oximetry 95 95 97 Oxygen Delivery 02/12/25 21:30 02/12/25 21:33 02/12/25 21:38 Temperature Pulse Rate 72 Respiratory Rate Blood Pressure 113/63 Blood Pressure [Left Arm] Pulse Oximetry 94 94 Oxygen Delivery 02/12/25 21:43 02/12/25 21:45 02/12/25 21:48 Temperature Pulse Rate 79 Respiratory Rate Blood Pressure 104/74 Blood Pressure [Left Arm] Pulse Oximetry 95 96 Oxygen Delivery 02/12/25 21:53 02/12/25 21:58 02/12/25 22:00 Temperature Pulse Rate 84 Respiratory Rate Blood Pressure 106/68 Blood Pressure [Left Arm] Pulse Oximetry 96 96 Oxygen Delivery 02/12/25 22:03 02/12/25 22:08 02/12/25 22:13 Temperature Pulse Rate Respiratory Rate Blood Pressure Blood Pressure [Left Arm] Pulse Oximetry 97 98 97 Oxygen Delivery 02/12/25 22:15 02/12/25 22:15 02/12/25 22:16 Temperature 98.2 F Pulse Rate 84 Respiratory Rate 19 Blood Pressure Blood Pressure [Left Arm] 106/68 Pulse Oximetry Oxygen Delivery Room Air 02/12/25 22:18 02/12/25 22:23 02/12/25 22:28 Temperature Pulse Rate Respiratory Rate Blood Pressure Blood Pressure [Left Arm] Pulse Oximetry 96 97 94 Oxygen Delivery 02/12/25 22:33 02/12/25 22:38 02/12/25 22:43 Temperature Pulse Rate Respiratory Rate Blood Pressure Blood Pressure [Left Arm] Pulse Oximetry 94 93 92 Oxygen Delivery 02/12/25 22:48 02/12/25 22:53 02/12/25 22:58 Temperature Pulse Rate Respiratory Rate Blood Pressure Blood Pressure [Left Arm] Pulse Oximetry 92 92 92 Oxygen Delivery 02/12/25 23:00 02/12/25 23:03 02/12/25 23:08 Temperature Pulse Rate 75 Respiratory Rate Blood Pressure 106/60 Blood Pressure [Left Arm] Pulse Oximetry 92 92 Oxygen Delivery 02/12/25 23:13 02/12/25 23:18 02/12/25 23:23 Temperature Pulse Rate Respiratory Rate Blood Pressure Blood Pressure [Left Arm] Pulse Oximetry 93 92 92 Oxygen Delivery 02/12/25 23:28 02/12/25 23:33 02/12/25 23:38 Temperature Pulse Rate Respiratory Rate Blood Pressure Blood Pressure [Left Arm] Pulse Oximetry 92 94 95 Oxygen Delivery 02/12/25 23:43 02/12/25 23:48 02/12/25 23:53 Temperature Pulse Rate Respiratory Rate Blood Pressure Blood Pressure [Left Arm] Pulse Oximetry 92 92 93 Oxygen Delivery 02/12/25 23:58 02/13/25 00:00 02/13/25 00:03 Temperature Pulse Rate 82 Respiratory Rate Blood Pressure 126/72 Blood Pressure [Left Arm] Pulse Oximetry 93 94 Oxygen Delivery 02/13/25 00:08 02/13/25 00:13 02/13/25 00:18 Temperature Pulse Rate Respiratory Rate Blood Pressure Blood Pressure [Left Arm] Pulse Oximetry 93 94 94 Oxygen Delivery 02/13/25 00:23 02/13/25 00:28 02/13/25 00:33 Temperature Pulse Rate Respiratory Rate Blood Pressure Blood Pressure [Left Arm] Pulse Oximetry 97 96 98 Oxygen Delivery 02/13/25 00:38 02/13/25 00:43 02/13/25 00:51 Temperature Pulse Rate Respiratory Rate Blood Pressure Blood Pressure [Left Arm] Pulse Oximetry 97 97 99 Oxygen Delivery 02/13/25 00:56 02/13/25 01:00 02/13/25 01:01 Temperature Pulse Rate 76 Respiratory Rate Blood Pressure 109/70 Blood Pressure [Left Arm] Pulse Oximetry 98 97 Oxygen Delivery 02/13/25 01:06 02/13/25 01:11 02/13/25 01:16 Temperature Pulse Rate Respiratory Rate Blood Pressure Blood Pressure [Left Arm] Pulse Oximetry 96 97 96 Oxygen Delivery 02/13/25 01:21 02/13/25 01:26 02/13/25 01:31 Temperature Pulse Rate Respiratory Rate Blood Pressure Blood Pressure [Left Arm] Pulse Oximetry 95 95 95 Oxygen Delivery 02/13/25 01:36 02/13/25 01:41 02/13/25 01:46 Temperature Pulse Rate Respiratory Rate Blood Pressure Blood Pressure [Left Arm] Pulse Oximetry 95 94 94 Oxygen Delivery 02/13/25 01:51 02/13/25 01:56 02/13/25 02:00 Temperature Pulse Rate 70 Respiratory Rate Blood Pressure 115/73 Blood Pressure [Left Arm] Pulse Oximetry 94 94 Oxygen Delivery 02/13/25 02:01 02/13/25 02:06 02/13/25 02:11 Temperature Pulse Rate Respiratory Rate Blood Pressure Blood Pressure [Left Arm] Pulse Oximetry 96 95 94 Oxygen Delivery 02/13/25 02:14 02/13/25 02:14 02/13/25 02:14 Temperature 98.2 F Pulse Rate 70 Respiratory Rate 20 Blood Pressure Blood Pressure [Left Arm] 115/73 Pulse Oximetry Oxygen Delivery Room Air 02/13/25 02:16 02/13/25 02:21 02/13/25 02:26 Temperature Pulse Rate Respiratory Rate Blood Pressure Blood Pressure [Left Arm] Pulse Oximetry 94 93 93 Oxygen Delivery 02/13/25 02:31 02/13/25 02:36 02/13/25 02:41 Temperature Pulse Rate Respiratory Rate Blood Pressure Blood Pressure [Left Arm] Pulse Oximetry 93 93 93 Oxygen Delivery 02/13/25 02:46 02/13/25 02:51 02/13/25 02:56 Temperature Pulse Rate Respiratory Rate Blood Pressure Blood Pressure [Left Arm] Pulse Oximetry 93 93 93 Oxygen Delivery 02/13/25 03:00 02/13/25 03:01 02/13/25 03:06 Temperature Pulse Rate 80 Respiratory Rate Blood Pressure 129/73 Blood Pressure [Left Arm] Pulse Oximetry 95 93 Oxygen Delivery 02/13/25 03:11 02/13/25 03:16 02/13/25 03:21 Temperature Pulse Rate Respiratory Rate Blood Pressure Blood Pressure [Left Arm] Pulse Oximetry 97 94 94 Oxygen Delivery 02/13/25 03:26 02/13/25 03:31 02/13/25 03:36 Temperature Pulse Rate Respiratory Rate Blood Pressure Blood Pressure [Left Arm] Pulse Oximetry 94 96 94 Oxygen Delivery 02/13/25 03:41 02/13/25 03:46 02/13/25 03:51 Temperature Pulse Rate Respiratory Rate Blood Pressure Blood Pressure [Left Arm] Pulse Oximetry 93 95 94 Oxygen Delivery 02/13/25 03:56 02/13/25 04:00 02/13/25 04:01 Temperature Pulse Rate 66 Respiratory Rate Blood Pressure 123/88 Blood Pressure [Left Arm] Pulse Oximetry 94 95 Oxygen Delivery 02/13/25 04:06 02/13/25 04:11 02/13/25 04:16 Temperature Pulse Rate Respiratory Rate Blood Pressure Blood Pressure [Left Arm] Pulse Oximetry 94 94 94 Oxygen Delivery 02/13/25 04:21 02/13/25 04:26 02/13/25 04:31 Temperature Pulse Rate Respiratory Rate Blood Pressure Blood Pressure [Left Arm] Pulse Oximetry 94 94 94 Oxygen Delivery 02/13/25 04:36 02/13/25 04:41 02/13/25 04:48 Temperature Pulse Rate Respiratory Rate Blood Pressure Blood Pressure [Left Arm] Pulse Oximetry 94 95 99 Oxygen Delivery 02/13/25 04:53 02/13/25 04:58 02/13/25 05:00 Temperature Pulse Rate 69 Respiratory Rate Blood Pressure 120/85 Blood Pressure [Left Arm] Pulse Oximetry 97 95 Oxygen Delivery 02/13/25 05:03 02/13/25 05:08 02/13/25 05:13 Temperature Pulse Rate Respiratory Rate Blood Pressure Blood Pressure [Left Arm] Pulse Oximetry 95 94 95 Oxygen Delivery 02/13/25 05:18 02/13/25 05:23 02/13/25 05:28 Temperature Pulse Rate Respiratory Rate Blood Pressure Blood Pressure [Left Arm] Pulse Oximetry 95 94 95 Oxygen Delivery 02/13/25 05:33 02/13/25 05:38 02/13/25 05:40 Temperature Pulse Rate Respiratory Rate Blood Pressure Blood Pressure [Left Arm] Pulse Oximetry 95 93 Oxygen Delivery Room Air 02/13/25 05:40 02/13/25 05:43 02/13/25 05:48 Temperature 98.2 F Pulse Rate Respiratory Rate Blood Pressure Blood Pressure [Left Arm] Pulse Oximetry 93 93 Oxygen Delivery 02/13/25 05:53 02/13/25 05:58 02/13/25 06:00 Temperature Pulse Rate 70 Respiratory Rate Blood Pressure 129/75 Blood Pressure [Left Arm] Pulse Oximetry 93 93 Oxygen Delivery 02/13/25 06:03 02/13/25 06:08 02/13/25 06:13 Temperature Pulse Rate Respiratory Rate Blood Pressure Blood Pressure [Left Arm] Pulse Oximetry 93 93 93 Oxygen Delivery 02/13/25 06:18 02/13/25 06:23 02/13/25 06:28 Temperature Pulse Rate Respiratory Rate Blood Pressure Blood Pressure [Left Arm] Pulse Oximetry 93 93 93 Oxygen Delivery 02/13/25 06:33 02/13/25 06:38 02/13/25 06:43 Temperature Pulse Rate Respiratory Rate Blood Pressure Blood Pressure [Left Arm] Pulse Oximetry 94 93 94 Oxygen Delivery 02/13/25 06:48 02/13/25 06:53 02/13/25 06:58 Temperature Pulse Rate Respiratory Rate Blood Pressure Blood Pressure [Left Arm] Pulse Oximetry 94 94 93 Oxygen Delivery 02/13/25 07:00 02/13/25 07:03 02/13/25 07:08 Temperature Pulse Rate 73 Respiratory Rate Blood Pressure 122/84 Blood Pressure [Left Arm] Pulse Oximetry 93 95 Oxygen Delivery 02/13/25 07:13 02/13/25 07:18 02/13/25 07:23 Temperature Pulse Rate Respiratory Rate Blood Pressure Blood Pressure [Left Arm] Pulse Oximetry 93 93 98 Oxygen Delivery 02/13/25 07:28 02/13/25 07:33 02/13/25 07:38 Temperature Pulse Rate Respiratory Rate Blood Pressure Blood Pressure [Left Arm] Pulse Oximetry 93 93 93 Oxygen Delivery 02/13/25 07:43 02/13/25 07:48 Temperature Pulse Rate Respiratory Rate Blood Pressure Blood Pressure [Left Arm] Pulse Oximetry 93 97 Oxygen Delivery Exam Const: General: no acute distress Eyes: EOM: EOMs intact bilaterally Neck: Neck: supple Thyroid: thyroid normal Chest: Breast/axilla inspection: normal inspection of the breasts Breast/axilla palpation: normal palpation of the breasts, normal palpation of the axillae and no axillary lymphadenopathy Resp: Effort & Inspection: normal respiratory effort Auscultation: clear to auscultation bilaterally Cardio: Rate: regular rate Rhythm: regular rhythm GI: Inspection: non-distended GI Palp: Yes Soft to palpation, No Tenderness to palpation present (GI) and No Guarding due to palpation present (GI) Auscultation: normal bowel sounds : General: No bladder normal to palpation External Female Exam: normal external appearance Speculum Exam - Vagina: normal vaginal discharge and No vaginal bleeding Speculum Exam - Cervix: nontender Bimanual exam- vagina & uterus: No bladder normal to palpation and No Cervical tenderness present OB/external & speculum: No vaginal bleeding Skin: General skin exam: normal color and no rashes or lesions noted Neuro: Cognition (Neuro): normal cognition Speech: normal speech Extrem: General: normal to inspection and no edema Psych: Mental Status: mental status grossly normal Affect: normal affect H&P: Results Labs Labs: Short CBC 02/12/25 Range/Units 17:25 WBC 10.3 H (4.5-10.0) K/mm3 Hgb 12.8 (12.0-15.0) g/dL Hct 38.9 (37.0-47.0) % Plt Count 222 (150-375) k/mm3 BMP 02/12/25 17:25 Sodium 138 Potassium 4.1 Chloride 108 H Carbon Dioxide 23 BUN 17 Creatinine 0.72 Glucose 94 Calcium 8.4 Liver Function 02/12/25 Range/Units 17:25 Total Bilirubin 0.3 (0.2-1.3) mg/dL AST 35 (14-36) U/L ALT 39 H (6-35) U/L Alkaline Phosphatase 111 (38-126) U/L Albumin 3.3 L (3.5-5.1) g/dL Assessment and Plan Assessment and plan (1) Preeclampsia in period: Code(s): O14.95 - Unspecified pre-eclampsia, complicating the puerperium Status: Acute Assessment and Plan: 34-year-old 013 who presents with preeclampsia Patient has been experiencing neck stiffness and headache Upon arrival to and D's was found have severe range blood pressures Given persistent severe range blood pressures and [employer] symptoms, diagnosis of preeclampsia was made Patient required IV hydralazine and IV labetalol and still had persistent elevated blood pressures Magnesium sulfate was started for seizure prophylaxis Patient has remained normotensive since magnesium was started Will continue to monitor blood pressures
--- NOTE | 2025-02-13 08:55 | PM.IMHP ---
H&P: HPI History of Present Illness Date/Time: 02/13/25 08:55 Chief Complaint: Headache Narrative: 34 y/o PPD#7 after . She had a headache yesterday, phoned, and was instructed to come in for evaluation. Anesthesia evaluated her and does not believe headache is related to epidural. BP initially elevated, and she was given one dose of labetalol and magnesium sulfate started. Now normotensive on no antihypertensive. Headache has resolved - last dose of ibuprofen was last night. She still has some left neck pain, seems musculoskeletal. edema for a few days resolved. Labs OK, but for ALT 39 (mildly elevated.) . Good urine output. Review of Systems Review of Systems: All systems reviewed & are unremarkable except as noted in HPI and below PMFSH Past Medical History Medical History Surgical History Surgical History [place] teeth removed History of dilatation and curettage Family History Family History Father High cholesterol Hypertension Grandparent Heart disease Metastatic breast cancer Hypertension Uterine cancer Acute leukemia Grandparent Diabetes mellitus Social History Social History Smoking status: Never smoker Second hand tobacco smoke exposure: No Substance use: never Do You Feel Safe in your Home?: Yes Lack of Transportation: No Lack of Food: Never True Current Housing: I Have Housing Concerned About Future Housing: No Difficulty Paying Gas/Electric Bills: No Difficulty Paying for Meds: No Currently Unemployed: No Education: Bachelor's Degree Difficulty w/ Childcare or Family Care: No Spiritual care concerns: No Meds Home Medications and Allergies Home Medications ?Medication ?Instructions ?Recorded ?Confirmed ?Type prenat.vits,brian,nic-xgrm-fsxoc 1 tablet PO HS 10/15/20 02/12/25 History calcium carbonate (Tums) 200 mg PO BID 12/26/24 02/12/25 History ibuprofen 600 mg tablet 600 mg PO Q6H PRN cramps #30 tabs 02/06/25 02/12/25 Rx Allergies Allergy/AdvReac Type Severity Reaction Status Date / Time hydrocodone Allergy Mild rash Verified 02/12/25 22:24 Penicillins Allergy Mild rash Verified 02/12/25 22:24 Vital Signs Vital Signs - 24 hr 02/12/25 17:06 02/12/25 17:15 02/12/25 17:30 Temperature Pulse Rate 55 L 62 61 Respiratory Rate Blood Pressure 167/95 H 176/97 H 173/95 H Blood Pressure [Left Arm] Pulse Oximetry Oxygen Delivery 02/12/25 17:33 02/12/25 17:38 02/12/25 17:43 Temperature Pulse Rate Respiratory Rate Blood Pressure Blood Pressure [Left Arm] Pulse Oximetry 97 98 98 Oxygen Delivery 02/12/25 17:45 02/12/25 17:51 02/12/25 17:56 Temperature Pulse Rate 62 Respiratory Rate Blood Pressure 168/98 H Blood Pressure [Left Arm] Pulse Oximetry 99 98 Oxygen Delivery 02/12/25 18:00 02/12/25 18:01 02/12/25 18:06 Temperature Pulse Rate 59 L Respiratory Rate Blood Pressure 169/95 H Blood Pressure [Left Arm] Pulse Oximetry 99 98 Oxygen Delivery 02/12/25 18:07 02/12/25 18:11 02/12/25 18:15 Temperature Pulse Rate 58 L 60 Respiratory Rate Blood Pressure 166/94 H 172/89 H Blood Pressure [Left Arm] Pulse Oximetry 99 Oxygen Delivery 02/12/25 18:16 02/12/25 18:21 02/12/25 18:22 Temperature Pulse Rate 61 Respiratory Rate Blood Pressure 164/90 H Blood Pressure [Left Arm] Pulse Oximetry 97 97 Oxygen Delivery 02/12/25 18:26 02/12/25 18:30 02/12/25 18:31 Temperature Pulse Rate 61 Respiratory Rate Blood Pressure 157/90 H Blood Pressure [Left Arm] Pulse Oximetry 97 98 Oxygen Delivery 02/12/25 18:42 02/12/25 18:45 02/12/25 18:45 Temperature Pulse Rate 60 103 H Respiratory Rate Blood Pressure 154/86 H Blood Pressure [Left Arm] 154/86 H Pulse Oximetry 99 Oxygen Delivery 02/12/25 18:45 02/12/25 18:47 02/12/25 18:52 Temperature 98.4 F Pulse Rate Respiratory Rate 19 Blood Pressure Blood Pressure [Left Arm] Pulse Oximetry 98 99 Oxygen Delivery 02/12/25 18:57 02/12/25 19:00 02/12/25 19:02 Temperature Pulse Rate 60 Respiratory Rate Blood Pressure 144/80 H Blood Pressure [Left Arm] Pulse Oximetry 96 97 Oxygen Delivery 02/12/25 19:07 02/12/25 19:12 02/12/25 19:15 Temperature Pulse Rate 60 Respiratory Rate Blood Pressure 147/78 H Blood Pressure [Left Arm] Pulse Oximetry 97 96 Oxygen Delivery 02/12/25 19:17 02/12/25 19:22 02/12/25 19:27 Temperature Pulse Rate Respiratory Rate Blood Pressure Blood Pressure [Left Arm] Pulse Oximetry 98 96 96 Oxygen Delivery 02/12/25 19:30 02/12/25 19:32 02/12/25 19:37 Temperature Pulse Rate 61 Respiratory Rate Blood Pressure 140/83 Blood Pressure [Left Arm] Pulse Oximetry 97 96 Oxygen Delivery 02/12/25 19:43 02/12/25 19:45 02/12/25 19:48 Temperature Pulse Rate 60 Respiratory Rate Blood Pressure 145/89 H Blood Pressure [Left Arm] Pulse Oximetry 99 98 Oxygen Delivery 02/12/25 19:53 02/12/25 19:58 02/12/25 20:00 Temperature Pulse Rate 65 Respiratory Rate Blood Pressure 132/84 Blood Pressure [Left Arm] Pulse Oximetry 97 97 Oxygen Delivery 02/12/25 20:03 02/12/25 20:08 02/12/25 20:13 Temperature Pulse Rate Respiratory Rate Blood Pressure Blood Pressure [Left Arm] Pulse Oximetry 98 98 97 Oxygen Delivery 02/12/25 20:15 02/12/25 20:18 02/12/25 20:23 Temperature Pulse Rate 63 Respiratory Rate Blood Pressure 137/82 Blood Pressure [Left Arm] Pulse Oximetry 97 98 Oxygen Delivery 02/12/25 20:24 02/12/25 20:28 02/12/25 20:30 Temperature Pulse Rate 70 Respiratory Rate Blood Pressure 126/79 Blood Pressure [Left Arm] Pulse Oximetry 97 Oxygen Delivery Room Air 02/12/25 20:33 02/12/25 20:38 02/12/25 20:43 Temperature Pulse Rate Respiratory Rate Blood Pressure Blood Pressure [Left Arm] Pulse Oximetry 96 98 97 Oxygen Delivery 02/12/25 20:45 02/12/25 20:48 02/12/25 20:53 Temperature Pulse Rate 82 Respiratory Rate Blood Pressure 119/74 Blood Pressure [Left Arm] Pulse Oximetry 97 96 Oxygen Delivery 02/12/25 20:58 02/12/25 21:00 02/12/25 21:03 Temperature Pulse Rate 69 Respiratory Rate Blood Pressure 116/71 Blood Pressure [Left Arm] Pulse Oximetry 96 97 Oxygen Delivery 02/12/25 21:08 02/12/25 21:13 02/12/25 21:15 Temperature Pulse Rate 77 Respiratory Rate Blood Pressure 109/70 Blood Pressure [Left Arm] Pulse Oximetry 96 96 Oxygen Delivery 02/12/25 21:18 02/12/25 21:23 02/12/25 21:28 Temperature Pulse Rate Respiratory Rate Blood Pressure Blood Pressure [Left Arm] Pulse Oximetry 95 95 97 Oxygen Delivery 02/12/25 21:30 02/12/25 21:33 02/12/25 21:38 Temperature Pulse Rate 72 Respiratory Rate Blood Pressure 113/63 Blood Pressure [Left Arm] Pulse Oximetry 94 94 Oxygen Delivery 02/12/25 21:43 02/12/25 21:45 02/12/25 21:48 Temperature Pulse Rate 79 Respiratory Rate Blood Pressure 104/74 Blood Pressure [Left Arm] Pulse Oximetry 95 96 Oxygen Delivery 02/12/25 21:53 02/12/25 21:58 02/12/25 22:00 Temperature Pulse Rate 84 Respiratory Rate Blood Pressure 106/68 Blood Pressure [Left Arm] Pulse Oximetry 96 96 Oxygen Delivery 02/12/25 22:03 02/12/25 22:08 02/12/25 22:13 Temperature Pulse Rate Respiratory Rate Blood Pressure Blood Pressure [Left Arm] Pulse Oximetry 97 98 97 Oxygen Delivery 02/12/25 22:15 02/12/25 22:15 02/12/25 22:16 Temperature 98.2 F Pulse Rate 84 Respiratory Rate 19 Blood Pressure Blood Pressure [Left Arm] 106/68 Pulse Oximetry Oxygen Delivery Room Air 02/12/25 22:18 02/12/25 22:23 02/12/25 22:28 Temperature Pulse Rate Respiratory Rate Blood Pressure Blood Pressure [Left Arm] Pulse Oximetry 96 97 94 Oxygen Delivery 02/12/25 22:33 02/12/25 22:38 02/12/25 22:43 Temperature Pulse Rate Respiratory Rate Blood Pressure Blood Pressure [Left Arm] Pulse Oximetry 94 93 92 Oxygen Delivery 02/12/25 22:48 02/12/25 22:53 02/12/25 22:58 Temperature Pulse Rate Respiratory Rate Blood Pressure Blood Pressure [Left Arm] Pulse Oximetry 92 92 92 Oxygen Delivery 02/12/25 23:00 02/12/25 23:03 02/12/25 23:08 Temperature Pulse Rate 75 Respiratory Rate Blood Pressure 106/60 Blood Pressure [Left Arm] Pulse Oximetry 92 92 Oxygen Delivery 02/12/25 23:13 02/12/25 23:18 02/12/25 23:23 Temperature Pulse Rate Respiratory Rate Blood Pressure Blood Pressure [Left Arm] Pulse Oximetry 93 92 92 Oxygen Delivery 02/12/25 23:28 02/12/25 23:33 02/12/25 23:38 Temperature Pulse Rate Respiratory Rate Blood Pressure Blood Pressure [Left Arm] Pulse Oximetry 92 94 95 Oxygen Delivery 02/12/25 23:43 02/12/25 23:48 02/12/25 23:53 Temperature Pulse Rate Respiratory Rate Blood Pressure Blood Pressure [Left Arm] Pulse Oximetry 92 92 93 Oxygen Delivery 02/12/25 23:58 02/13/25 00:00 02/13/25 00:03 Temperature Pulse Rate 82 Respiratory Rate Blood Pressure 126/72 Blood Pressure [Left Arm] Pulse Oximetry 93 94 Oxygen Delivery 02/13/25 00:08 02/13/25 00:13 02/13/25 00:18 Temperature Pulse Rate Respiratory Rate Blood Pressure Blood Pressure [Left Arm] Pulse Oximetry 93 94 94 Oxygen Delivery 02/13/25 00:23 02/13/25 00:28 02/13/25 00:33 Temperature Pulse Rate Respiratory Rate Blood Pressure Blood Pressure [Left Arm] Pulse Oximetry 97 96 98 Oxygen Delivery 02/13/25 00:38 02/13/25 00:43 02/13/25 00:51 Temperature Pulse Rate Respiratory Rate Blood Pressure Blood Pressure [Left Arm] Pulse Oximetry 97 97 99 Oxygen Delivery 02/13/25 00:56 02/13/25 01:00 02/13/25 01:01 Temperature Pulse Rate 76 Respiratory Rate Blood Pressure 109/70 Blood Pressure [Left Arm] Pulse Oximetry 98 97 Oxygen Delivery 02/13/25 01:06 02/13/25 01:11 02/13/25 01:16 Temperature Pulse Rate Respiratory Rate Blood Pressure Blood Pressure [Left Arm] Pulse Oximetry 96 97 96 Oxygen Delivery 02/13/25 01:21 02/13/25 01:26 02/13/25 01:31 Temperature Pulse Rate Respiratory Rate Blood Pressure Blood Pressure [Left Arm] Pulse Oximetry 95 95 95 Oxygen Delivery 02/13/25 01:36 02/13/25 01:41 02/13/25 01:46 Temperature Pulse Rate Respiratory Rate Blood Pressure Blood Pressure [Left Arm] Pulse Oximetry 95 94 94 Oxygen Delivery 02/13/25 01:51 02/13/25 01:56 02/13/25 02:00 Temperature Pulse Rate 70 Respiratory Rate Blood Pressure 115/73 Blood Pressure [Left Arm] Pulse Oximetry 94 94 Oxygen Delivery 02/13/25 02:01 02/13/25 02:06 02/13/25 02:11 Temperature Pulse Rate Respiratory Rate Blood Pressure Blood Pressure [Left Arm] Pulse Oximetry 96 95 94 Oxygen Delivery 02/13/25 02:14 02/13/25 02:14 02/13/25 02:14 Temperature 98.2 F Pulse Rate 70 Respiratory Rate 20 Blood Pressure Blood Pressure [Left Arm] 115/73 Pulse Oximetry Oxygen Delivery Room Air 02/13/25 02:16 02/13/25 02:21 02/13/25 02:26 Temperature Pulse Rate Respiratory Rate Blood Pressure Blood Pressure [Left Arm] Pulse Oximetry 94 93 93 Oxygen Delivery 02/13/25 02:31 02/13/25 02:36 02/13/25 02:41 Temperature Pulse Rate Respiratory Rate Blood Pressure Blood Pressure [Left Arm] Pulse Oximetry 93 93 93 Oxygen Delivery 02/13/25 02:46 02/13/25 02:51 02/13/25 02:56 Temperature Pulse Rate Respiratory Rate Blood Pressure Blood Pressure [Left Arm] Pulse Oximetry 93 93 93 Oxygen Delivery 02/13/25 03:00 02/13/25 03:01 02/13/25 03:06 Temperature Pulse Rate 80 Respiratory Rate Blood Pressure 129/73 Blood Pressure [Left Arm] Pulse Oximetry 95 93 Oxygen Delivery 02/13/25 03:11 02/13/25 03:16 02/13/25 03:21 Temperature Pulse Rate Respiratory Rate Blood Pressure Blood Pressure [Left Arm] Pulse Oximetry 97 94 94 Oxygen Delivery 02/13/25 03:26 02/13/25 03:31 02/13/25 03:36 Temperature Pulse Rate Respiratory Rate Blood Pressure Blood Pressure [Left Arm] Pulse Oximetry 94 96 94 Oxygen Delivery 02/13/25 03:41 02/13/25 03:46 02/13/25 03:51 Temperature Pulse Rate Respiratory Rate Blood Pressure Blood Pressure [Left Arm] Pulse Oximetry 93 95 94 Oxygen Delivery 02/13/25 03:56 02/13/25 04:00 02/13/25 04:01 Temperature Pulse Rate 66 Respiratory Rate Blood Pressure 123/88 Blood Pressure [Left Arm] Pulse Oximetry 94 95 Oxygen Delivery 02/13/25 04:06 02/13/25 04:11 02/13/25 04:16 Temperature Pulse Rate Respiratory Rate Blood Pressure Blood Pressure [Left Arm] Pulse Oximetry 94 94 94 Oxygen Delivery 02/13/25 04:21 02/13/25 04:26 02/13/25 04:31 Temperature Pulse Rate Respiratory Rate Blood Pressure Blood Pressure [Left Arm] Pulse Oximetry 94 94 94 Oxygen Delivery 02/13/25 04:36 02/13/25 04:41 02/13/25 04:48 Temperature Pulse Rate Respiratory Rate Blood Pressure Blood Pressure [Left Arm] Pulse Oximetry 94 95 99 Oxygen Delivery 02/13/25 04:53 02/13/25 04:58 02/13/25 05:00 Temperature Pulse Rate 69 Respiratory Rate Blood Pressure 120/85 Blood Pressure [Left Arm] Pulse Oximetry 97 95 Oxygen Delivery 02/13/25 05:03 02/13/25 05:08 02/13/25 05:13 Temperature Pulse Rate Respiratory Rate Blood Pressure Blood Pressure [Left Arm] Pulse Oximetry 95 94 95 Oxygen Delivery 02/13/25 05:18 02/13/25 05:23 02/13/25 05:28 Temperature Pulse Rate Respiratory Rate Blood Pressure Blood Pressure [Left Arm] Pulse Oximetry 95 94 95 Oxygen Delivery 02/13/25 05:33 02/13/25 05:38 02/13/25 05:40 Temperature Pulse Rate Respiratory Rate Blood Pressure Blood Pressure [Left Arm] Pulse Oximetry 95 93 Oxygen Delivery Room Air 02/13/25 05:40 02/13/25 05:43 02/13/25 05:48 Temperature 98.2 F Pulse Rate Respiratory Rate Blood Pressure Blood Pressure [Left Arm] Pulse Oximetry 93 93 Oxygen Delivery 02/13/25 05:53 02/13/25 05:58 02/13/25 06:00 Temperature Pulse Rate 70 Respiratory Rate Blood Pressure 129/75 Blood Pressure [Left Arm] Pulse Oximetry 93 93 Oxygen Delivery 02/13/25 06:03 02/13/25 06:08 02/13/25 06:13 Temperature Pulse Rate Respiratory Rate Blood Pressure Blood Pressure [Left Arm] Pulse Oximetry 93 93 93 Oxygen Delivery 02/13/25 06:18 02/13/25 06:23 02/13/25 06:28 Temperature Pulse Rate Respiratory Rate Blood Pressure Blood Pressure [Left Arm] Pulse Oximetry 93 93 93 Oxygen Delivery 02/13/25 06:33 02/13/25 06:38 02/13/25 06:43 Temperature Pulse Rate Respiratory Rate Blood Pressure Blood Pressure [Left Arm] Pulse Oximetry 94 93 94 Oxygen Delivery 02/13/25 06:48 02/13/25 06:53 02/13/25 06:58 Temperature Pulse Rate Respiratory Rate Blood Pressure Blood Pressure [Left Arm] Pulse Oximetry 94 94 93 Oxygen Delivery 02/13/25 07:00 02/13/25 07:03 02/13/25 07:08 Temperature Pulse Rate 73 Respiratory Rate Blood Pressure 122/84 Blood Pressure [Left Arm] Pulse Oximetry 93 95 Oxygen Delivery 02/13/25 07:13 02/13/25 07:18 02/13/25 07:23 Temperature Pulse Rate Respiratory Rate Blood Pressure Blood Pressure [Left Arm] Pulse Oximetry 93 93 98 Oxygen Delivery 02/13/25 07:28 02/13/25 07:33 02/13/25 07:38 Temperature Pulse Rate Respiratory Rate Blood Pressure Blood Pressure [Left Arm] Pulse Oximetry 93 93 93 Oxygen Delivery 02/13/25 07:43 02/13/25 07:48 02/13/25 07:53 Temperature Pulse Rate Respiratory Rate Blood Pressure Blood Pressure [Left Arm] Pulse Oximetry 93 97 95 Oxygen Delivery 02/13/25 07:58 02/13/25 08:00 02/13/25 08:05 Temperature Pulse Rate 76 Respiratory Rate Blood Pressure 125/87 Blood Pressure [Left Arm] Pulse Oximetry 97 98 96 Oxygen Delivery 02/13/25 08:10 02/13/25 08:15 02/13/25 08:20 Temperature Pulse Rate Respiratory Rate Blood Pressure Blood Pressure [Left Arm] Pulse Oximetry 96 97 97 Oxygen Delivery 02/13/25 08:25 02/13/25 08:30 02/13/25 08:35 Temperature Pulse Rate Respiratory Rate Blood Pressure Blood Pressure [Left Arm] Pulse Oximetry 97 97 96 Oxygen Delivery 02/13/25 08:40 02/13/25 08:45 02/13/25 08:50 Temperature Pulse Rate Respiratory Rate Blood Pressure Blood Pressure [Left Arm] Pulse Oximetry 98 98 98 Oxygen Delivery Exam Const: Other: Well-developed, well-nourished female in no acute distress. Resp: Other: Lungs: Normal respiratory effort. Clear to auscultation bilaterally. Cardio: Other: Heart: Regular rate and rhythm with normal S1-S2. GI: Other: ABD: Soft, nontender, nondistended. Fundus firm and nontender, below umbilicus. No guarding or rebound tenderness. No hepatosplenomegaly, no RUQ or midepigastric tenderness. : Other: Deferred. Back/Spine/Pelvis: Other: Back: No CVA tenderness. Neuro: Other: DTR 2+/4 and symmetric bilaterally in lower extremities. Extrem: Other: Extremities: nontender with no edema Psych: Other: Mental status grossly normal, with normal mood and affect. H&P: Results Labs Labs: Short CBC 02/12/25 Range/Units 17:25 WBC 10.3 H (4.5-10.0) K/mm3 Hgb 12.8 (12.0-15.0) g/dL Hct 38.9 (37.0-47.0) % Plt Count 222 (150-375) k/mm3 BMP 02/12/25 17:25 Sodium 138 Potassium 4.1 Chloride 108 H Carbon Dioxide 23 BUN 17 Creatinine 0.72 Glucose 94 Calcium 8.4 Liver Function 02/12/25 Range/Units 17:25 Total Bilirubin 0.3 (0.2-1.3) mg/dL AST 35 (14-36) U/L ALT 39 H (6-35) U/L Alkaline Phosphatase 111 (38-126) U/L Albumin 3.3 L (3.5-5.1) g/dL Assessment and Plan Assessment and plan (1) Preeclampsia in period: Code(s): O14.95 - Unspecified pre-eclampsia, complicating the puerperium Status: Acute Assessment and Plan: A: Likely preeclampsia. P: Clinically she has improved greatly. Stop magnesium and see how the day goes regarding bp and headache. No need for antihypertensive at this point. Will reevaluate later today.
--- NOTE | 2025-02-13 09:08 | PC.NURSE ---
0840- Dr. Hernandez at bedside to discuss plan of care with pt. Lab results and vitals reviewed with MD, RN, and pt at bedside. Orders received.
[2025-02-13 09:26] LABS: Hematocrit 39.4 % (37.0-47.0); Hemoglobin 12.9 g/dL (12.0-15.0); Mean Corpuscular HGB Conc 32.7 g/dl (32-36); Mean Corpuscular Hemoglobin 30.6 pg (26-34); Mean Corpuscular Volume 93.4 fl (80-100); Platelet Count Result 223 k/mm3 (150-375); Red Blood Count 4.22 M/mm3 (4.2-5.4); White Blood Count 8.4 K/mm3 (4.5-10.0)
[2025-02-13 09:50] LABS: Alanine Aminotransferase 33 U/L (6-35); Albumin Level 3.3 g/dL (3.5-5.1); Alkaline Phosphatase 127 U/L (38-126); Anion Gap 7 mmol/L (4-12); Aspartate Amino Transferase 24 U/L (14-36); Bilirubin,Total 0.3 mg/dL (0.2-1.3); Blood Urea Nitrogen 11 mg/dL (7-17); Calcium 6.8 mg/dL (8.4-10.2); Carbon Dioxide 24 mmol/L (22-30); Chloride 105 mmol/L (98-107); Estimated CRCL calculation 121 ml/min; Estimated Glomerular Filt Rate > 60; Glucose 98 mg/dL (65-110); Potassium 3.8 mmol/L (3.4-5.0); Sodium 136 mmol/L (137-145); Total Protein 6.2 g/dL (6.3-8.2)
[2025-02-13] MEDS: MENTHOL 10% / METHYL SALICYLATE 15% 57 GM TUBE 1 APPLIC TOPICAL (15:13)
--- NOTE | 2025-02-13 15:18 | PC.NURSE ---
1515- Discussed plan of care with Dr. Hernandez. Orders received.
--- NOTE | 2025-02-13 16:31 | PM.OBPNVD ---
OB - PN: Subj Subjective Date/time seen: 02/13/25 16:31 Magnesium has been off since this morning. No headache. No visual change. No abdominal pain. Still with intermittent pain in the left neck, worse when she turns her head to the right. She has had mostly very normal bp (120/70), but has had some 140/80 when in pain. OB - PN: Obj Data Labs 02/13/25 09:13 02/13/25 09:13 Labs: Laboratory Results - last 24 hr 02/12/25 02/13/25 17:25 09:13 WBC 10.3 H 8.4 RBC 4.18 L 4.22 Hgb 12.8 12.9 Hct 38.9 39.4 MCV 93.1 93.4 MCH 30.6 30.6 MCHC 32.9 32.7 RDW 13.4 13.3 Plt Count 222 223 MPV 12.1 H 11.9 H Immature Gran % (Auto) 0.4 Neut % (Auto) 63.3 Lymph % (Auto) 22.7 [place] % (Auto) 8.9 H Eos % (Auto) 4.0 Baso % (Auto) 0.7 Lymph # (Auto) 2.34 [place] # (Auto) 0.9 H Eos # (Auto) 0.4 H Baso # (Auto) 0.1 Abs Immat Gran (auto) 0.04 H Absolute Neuts (auto) 6.6 Absolute Nucleated RBC 0.000 Nucleated RBC % 0.0 Sodium 138 136 L Potassium 4.1 3.8 Chloride 108 H 105 Carbon Dioxide 23 24 Anion Gap 7 7 BUN 17 11 D Creatinine 0.72 0.61 L Estim Creat Clear Calc Not Reportable 121 Estimated GFR > 60 > 60 Glucose 94 98 Uric Acid 5.5 Calcium 8.4 6.8 L Total Bilirubin 0.3 0.3 AST 35 24 ALT 39 H 33 Alkaline Phosphatase 111 127 H Total Protein 6.4 6.2 L Albumin 3.3 L 3.3 L OB - PN A/P Assessment and Plan (1) Neck pain, musculoskeletal: Code(s): M54.2 - Cervicalgia Status: Acute Assessment and Plan: A: PPD#7 with left neck pain, seems musculoskeletal. At this time I doubt preeclampsia. P: Plan home with analgesics and precautions. f/u office next week. Plan day: 7
--- NOTE | 2025-02-13 16:36 | P.DS_ITS ---
DS: Admitting Diagnosis Discharge Date 02/13/25 Admitting Diagnosis preeclampsia DS: Discharge Diagnosis Discharge Diagnosis (1) Neck pain, musculoskeletal: Code(s): M54.2 - Cervicalgia Status: Acute DS: Summary Hospital Course Hospital Course: Admitted at PPD#6-7 with headache. Spinal headache ruled out. Initially thought preeclampsia, and she was given Magnesium sulfate. This was stopped in the morning on 02/13. Pain seemed only to be in the left neck, and bp was normal except when pain would flare. Slightly elevated ALT resolved. Was able to go home on ibuprofen, Flexeril and occasional percocet to f/u in office next week. Doubt preeclampsia, favor musculoskeletal neck pain. Time Spent with Patient Time attestation: Total time spent providing and/or coordinating discharge services: DS: Data Data Completed and Pending Labs on day of discharge: Labs from last 24 hours 02/13/25 02/12/25 09:13 17:25 WBC 8.4 10.3 H RBC 4.22 4.18 L Hgb 12.9 12.8 Hct 39.4 38.9 MCV 93.4 93.1 MCH 30.6 30.6 MCHC 32.7 32.9 RDW 13.3 13.4 Plt Count 223 222 MPV 11.9 H 12.1 H Immature Gran % (Auto) 0.4 Neut % (Auto) 63.3 Lymph % (Auto) 22.7 [place] % (Auto) 8.9 H Eos % (Auto) 4.0 Baso % (Auto) 0.7 Lymph # (Auto) 2.34 [place] # (Auto) 0.9 H Eos # (Auto) 0.4 H Baso # (Auto) 0.1 Abs Immat Gran (auto) 0.04 H Absolute Neuts (auto) 6.6 Absolute Nucleated RBC 0.000 Nucleated RBC % 0.0 Sodium 136 L 138 Potassium 3.8 4.1 Chloride 105 108 H Carbon Dioxide 24 23 Anion Gap 7 7 BUN 11 D 17 Creatinine 0.61 L 0.72 Estim Creat Clear Calc 121 Not Reportable Estimated GFR > 60 > 60 Glucose 98 94 Uric Acid 5.5 Calcium 6.8 L 8.4 Total Bilirubin 0.3 0.3 AST 24 35 ALT 33 39 H Alkaline Phosphatase 127 H 111 Total Protein 6.2 L 6.4 Albumin 3.3 L 3.3 L Discharge Plan Discharge Attending physician on discharge: Regan Hernandez Consulting providers: Regan Hernandez Discharging Clinician: Regan Hernandez Patient Disposition: Home Activity: pelvic rest Diet: regular Discharge Instructions: Call or return if temperature above 100.4? F, increased abdominal pain, increased vaginal bleeding or any new problems. Patient Language: Frisian Stand Alone Forms: General Discharge Information Follow-up/Referrals: Regan Hernandez MD [Physician, DEVELOPMENT ANALYST] - Keep Reg. Scheduled Appt. Discharge Medications: New cyclobenzaprine 10 mg tablet 10 mg PO TID PRN (Reason: muscle spasm) Qty: 20 0RF oxycodone-acetaminophen [Percocet] 5-325 mg tablet 1 tablet PO Q6H PRN (Reason: pain) Qty: 20 0RF Continued calcium carbonate [Tums] 200 mg calcium (500 mg) tablet,chewable 200 mg PO BID ibuprofen 600 mg tablet 600 mg PO Q6H PRN (Reason: cramps) Qty: 30 0RF prenat.vits,brian,ezd-tsmy-qbtls Tablet 1 tablet PO HS Date of admission: 02/12/25 18:25 Primary Care Provider: Yonatan,Massiel Admitting Provider: Jose Cornejo Attending physician on admission: Jose Cornejo Condition: Stable
--- NOTE | 2025-02-13 17:46 | PC.NURSE ---
1242- Dr. Hernandez at bedside to discuss pt. plan of care. Orders received to DC pt. home.
== END 2025-02-13 16:30 | disposition home or self-care (01) | DRG 776 ==
LOC: ANHOBOP 18:28 → ANHOBPP 18:28
PROVIDERS: Admitting Provider Student in an Organized Health Care Education/Training Program; PCP Family Medicine; Visit Provider Obstetrics & Gynecology
DX: O14.95 Unspecified pre-eclampsia, complicating the puerperium (principal)
CPT/HCPCS: 36415; 80053; 84550; 85025; 85027; A9270; J0360; J3475; J7120

== ENCOUNTER 2025-02-14 17:28 | Outpatient (CLI) | payer OTHER, SELFPAY ==
[2025-02-14] VITALS (70 sets, daily range): BP systolic 105–169; BP diastolic 59–100; PULSE 56–86; RESP 15; O2SAT 92–99
--- OUTSIDE RECORDS SUMMARY | 2025-02-14 17:34 | XMS_ITS | Clinical Summary ---
Author Organization [facility] Address [address] [place] [address] Care Team Providers Care Orthopedics Teacher Name Role Phone Massiel Tam MD Primary Care Provider [phone] Source Comments [facility],non-owned Affiliates and Associated Physician Practices is amultiple site organization consisting of ambulatory clinics and hospital sitesin [place], [place], [place] and [place]. This disclosure is being madepursuant to the Care Everywhere program and may not contain all information available regarding this patient. Last updated 18.[facility] Allergies Active Allergy Reactions Criticality Noted Date [...] age to complete this topic Insurance [facility] Care Teams Orthopedics Teacher Relationship Specialty Start Date End Date Massiel Tam MD PCP - General Family Medicine 10/01/18
--- OUTSIDE RECORDS SUMMARY | 2025-02-14 17:34 | XMS_ITS | Clinical Summary ---
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 03/31/2013 12:4 8 PM CDT Megan Sylvester NP LAB PATHOLOGY ORDERABLES F inal Result [facility] HISTORICAL RESULTS from Last 3 Months or Most Recently Relevant to Health Maintenance Insurance [facility] [employer] S[employer] Care Teams Shank Turner Relationship Specialty Start Date End Date Jeovany Richter MD [id number] [place] [id number] PCP - General Internal Medicine 01/16/17
--- NOTE | 2025-02-14 18:48 | PC.NURSE ---
Pt presented with elevated bps at home. Admission bp was 166/100. Repeat bp 165/94. IV inserted and CBC, CMP collected. Dr. Coleman notified of pt arrival and of severe bps. Orders given for 20mg labetalol and to start magnesium
[2025-02-14 18:51] LABS: Hematocrit 41.4 % (37.0-47.0); Hemoglobin 13.4 g/dL (12.0-15.0); Immature Granulocyte Percent A 0.6 % (0-0.5); Lymphocytes Absolute Auto 2.63 K/mm3 (0.9-3.2); Mean Corpuscular HGB Conc 32.4 g/dl (32-36); Mean Corpuscular Hemoglobin 30.2 pg (26-34); Mean Corpuscular Volume 93.2 fl (80-100); Nucleated Red Blood Cells Absolute Auto 0.000 K/mm3 (0.0-0.012); Nucleated Red Blood Cells Perc 0.0 % (0.0-0.2); Platelet Count Result 269 k/mm3 (150-375); Red Blood Count 4.44 M/mm3 (4.2-5.4); White Blood Count 8.8 K/mm3 (4.5-10.0)
[2025-02-14 19:03] LABS: Alanine Aminotransferase 27 U/L (6-35); Albumin Level 3.5 g/dL (3.5-5.1); Alkaline Phosphatase 104 U/L (38-126); Anion Gap 6 mmol/L (4-12); Aspartate Amino Transferase 26 U/L (14-36); Bilirubin,Total 0.4 mg/dL (0.2-1.3); Blood Urea Nitrogen 14 mg/dL (7-17); Calcium 8.7 mg/dL (8.4-10.2); Carbon Dioxide 24 mmol/L (22-30); Chloride 109 mmol/L (98-107); Estimated Glomerular Filt Rate > 60; Glucose 90 mg/dL (65-110); Potassium 4.4 mmol/L (3.4-5.0); Sodium 139 mmol/L (137-145); Total Protein 6.7 g/dL (6.3-8.2); Uric Acid 5.4 mg/dL (2.5-7.5)
[2025-02-14] MEDS: LACTATED RINGERS 1,000 ML 75 ML IV CONT (19:30)
[2025-02-14] MEDS: MAGNESIUM SULF 4 GM/WATER100ML 4 GM/100 ML BAG IVPB (19:32)
--- NOTE | 2025-02-14 19:40 | PC.NURSE ---
Magnesium started, 20mg labetalol administered. Pt still severe after 20min. Dr. Coleman notified, orders given to administer 40 labetalol and 30mg nifedipine.
--- NOTE | 2025-02-14 20:07 | PC.NURSE ---
Dr. Coleman notified of RN holding 40mg labetalol d/t bp being 147/86, with nifedipine still administered. No new orders given, RN to continue to monitor
[2025-02-14] MEDS: IBUPROFEN 600 MG TABLET PO (21:02)
--- NOTE | 2025-02-14 22:42 | PC.NURSE ---
Pt resting comfortably in bed. No complaints or needs at this time.
[2025-02-15] VITALS (308 sets, daily range): BP systolic 95–131; BP diastolic 56–84; PULSE 60–110; RESP 16–20; TEMP 36.2–37.4; O2SAT 91–100
--- NOTE | 2025-02-15 | PC.NURSE ---
Addendum entered by Denita Salazar RN 02/15/25 00:54: Notified Dr. Coleman that patient is desaturating to 92-94% on RA while asleep. Lung sounds clear, pt denies shortness of breath, and vitals stable. O2 sats increases to 97% when awake. Asked if supplemental oxygen was indicated. Dr. Coleman advised no oxygen needed at this time as long as patient remained asymptomatic. Will continue to monitor Original Note: Notified Dr. Coleman that patient is desaturating to 92-94% on RA while asleep. Lung sounds clear, no shortness of breath, and vitals stable. O2 sats increases to 97% when awake. Asked if supplemental oxygen was indicated. Dr. Coleman advised no oxygen needed at this time as long as patient remained asymptomatic. Will continue to monitor
[2025-02-15] MEDS: IBUPROFEN 600 MG TABLET PO ×4 (02:52→22:46)
--- NOTE | 2025-02-15 03:20 | PC.NURSE ---
Pt resting comfortably in bed. Pt given ibuprofen for 3/10 neck pain. No other complaints at this time. Mag assessment WNL
[2025-02-15] MEDS: MAGNESIUM SULF 20GM/WATER500ML 500 ML 50 MG IV CONT ×2 (05:40→14:46)
[2025-02-15] MEDS: LACTATED RINGERS 1,000 ML 75 ML IV CONT (09:17)
--- NOTE | 2025-02-15 09:40 | PM.IMHP ---
H&P: HPI History of Present Illness Date/Time: 02/15/25 09:40 Chief Complaint: Elevated bp Narrative: 34 y/o PPD#8 after . She was admitted for observation for headache and elevated bp, suspicious for preeclampsia. She was placed on magnesium, which was discontinued yesterday morning. She had some elevated bp readings that corresponded with her musculoskeletal left neck pain, but other bp readings were low (100/60 range.) She was sent home yesterday afternoon without antihypertensive treatment. However, she had some high bp readings at home and returned to L&D. BP on arrival was 166/100. She was given a dose of labetalol IV 20 mg at 1900, then a dose of Procardia XL 30 mg po at 1949. Magnesium sulfate was restarted. This morning she feels intermittently lightheaded. She has no headache or abdominal pain. She has no visual field change. Labs are OK (AST 26, ALT 27, platelets 269K, Cr 0.64, Hgb 13.4). She is . Baby is doing well. Neck pain is OK with ibuprofen 600 mg po q 6h. No edema. Review of Systems Review of Systems: All systems reviewed & are unremarkable except as noted in HPI and below PMFSH Past Medical History Medical History Surgical History Surgical History [place] teeth removed History of dilatation and curettage Family History Family History Father High cholesterol Hypertension Grandparent Heart disease Metastatic breast cancer Hypertension Uterine cancer Acute leukemia Grandparent Diabetes mellitus Social History Social History Smoking status: Never smoker Second hand tobacco smoke exposure: No Substance use: never Do You Feel Safe in your Home?: Yes Lack of Transportation: No Lack of Food: Never True Current Housing: I Have Housing Concerned About Future Housing: No Difficulty Paying Gas/Electric Bills: No Difficulty Paying for Meds: No Currently Unemployed: No Education: Bachelor's Degree Difficulty w/ Childcare or Family Care: No Spiritual care concerns: No Meds Home Medications and Allergies Home Medications ?Medication ?Instructions ?Recorded ?Confirmed ?Type prenat.vits,brian,[id number] 1 tablet PO HS 10/15/20 02/12/25 History calcium carbonate (Tums) 200 mg PO BID 12/26/24 02/12/25 History ibuprofen 600 mg tablet 600 mg PO Q6H PRN cramps #30 tabs 02/06/25 02/12/25 Rx cyclobenzaprine 10 mg tablet 10 mg PO TID PRN muscle spasm #20 02/13/25 Rx tabs oxycodone-acetaminophen 5 mg-325 1 tablet PO Q6H PRN pain #20 tabs 02/13/25 Rx mg tablet (Percocet) Allergies Allergy/AdvReac Type Severity Reaction Status Date / Time hydrocodone Allergy Mild rash Verified 02/12/25 22:24 Penicillins Allergy Mild rash Verified 02/12/25 22:24 Vital Signs Vital Signs - 24 hr 02/14/25 18:03 02/14/25 18:15 02/14/25 18:34 Pulse Rate 65 58 L 62 Respiratory Rate Blood Pressure 166/100 H 165/94 H 167/89 H Blood Pressure [Left Arm] Blood Pressure [Right Arm] Pulse Oximetry Oxygen Delivery 02/14/25 18:45 02/14/25 19:00 02/14/25 19:10 Pulse Rate 58 L 60 58 L Respiratory Rate Blood Pressure 167/95 H 169/99 H 164/89 H Blood Pressure [Left Arm] Blood Pressure [Right Arm] Pulse Oximetry Oxygen Delivery 02/14/25 19:14 02/14/25 19:20 02/14/25 19:30 Pulse Rate 58 L 58 L 56 L Respiratory Rate Blood Pressure 159/92 H 166/94 H 169/93 H Blood Pressure [Left Arm] Blood Pressure [Right Arm] Pulse Oximetry Oxygen Delivery 02/14/25 19:30 02/14/25 19:30 02/14/25 19:33 Pulse Rate 56 L 56 L Respiratory Rate 15 Blood Pressure 169/93 H Blood Pressure [Left Arm] 166/100 H Blood Pressure [Right Arm] 169/93 H Pulse Oximetry 97 97 Oxygen Delivery 02/14/25 19:38 02/14/25 19:40 02/14/25 19:43 Pulse Rate 59 L Respiratory Rate Blood Pressure 147/86 H Blood Pressure [Left Arm] Blood Pressure [Right Arm] Pulse Oximetry 96 96 Oxygen Delivery 02/14/25 19:48 02/14/25 19:53 02/14/25 19:55 Pulse Rate 59 L 63 Respiratory Rate Blood Pressure 150/89 H 137/63 Blood Pressure [Left Arm] Blood Pressure [Right Arm] Pulse Oximetry 96 95 Oxygen Delivery 02/14/25 19:58 02/14/25 20:00 02/14/25 20:03 Pulse Rate 59 L Respiratory Rate Blood Pressure 139/78 Blood Pressure [Left Arm] Blood Pressure [Right Arm] Pulse Oximetry 93 96 Oxygen Delivery 02/14/25 20:08 02/14/25 20:13 02/14/25 20:15 Pulse Rate 59 L Respiratory Rate Blood Pressure 145/78 H Blood Pressure [Left Arm] Blood Pressure [Right Arm] Pulse Oximetry 96 96 Oxygen Delivery 02/14/25 20:18 02/14/25 20:23 02/14/25 20:28 Pulse Rate Respiratory Rate Blood Pressure Blood Pressure [Left Arm] Blood Pressure [Right Arm] Pulse Oximetry 95 95 96 Oxygen Delivery 02/14/25 20:30 02/14/25 20:33 02/14/25 20:38 Pulse Rate 63 Respiratory Rate Blood Pressure 135/89 Blood Pressure [Left Arm] Blood Pressure [Right Arm] Pulse Oximetry 96 99 Oxygen Delivery 02/14/25 20:43 02/14/25 20:45 02/14/25 20:48 Pulse Rate 65 Respiratory Rate Blood Pressure 152/82 H Blood Pressure [Left Arm] Blood Pressure [Right Arm] Pulse Oximetry 98 98 Oxygen Delivery 02/14/25 20:53 02/14/25 20:58 02/14/25 21:00 Pulse Rate 69 Respiratory Rate Blood Pressure 136/72 Blood Pressure [Left Arm] Blood Pressure [Right Arm] Pulse Oximetry 98 98 Oxygen Delivery 02/14/25 21:03 02/14/25 21:09 02/14/25 21:10 Pulse Rate Respiratory Rate Blood Pressure Blood Pressure [Left Arm] Blood Pressure [Right Arm] Pulse Oximetry 97 99 99 Oxygen Delivery 02/14/25 21:15 02/14/25 21:20 02/14/25 21:25 Pulse Rate Respiratory Rate Blood Pressure Blood Pressure [Left Arm] Blood Pressure [Right Arm] Pulse Oximetry 97 97 97 Oxygen Delivery 02/14/25 21:30 02/14/25 21:35 02/14/25 21:40 Pulse Rate 64 Respiratory Rate Blood Pressure 123/82 Blood Pressure [Left Arm] Blood Pressure [Right Arm] Pulse Oximetry 96 96 95 Oxygen Delivery 02/14/25 21:45 02/14/25 21:50 02/14/25 21:55 Pulse Rate 66 Respiratory Rate Blood Pressure 133/82 Blood Pressure [Left Arm] Blood Pressure [Right Arm] Pulse Oximetry 95 94 94 Oxygen Delivery 02/14/25 22:00 02/14/25 22:05 02/14/25 22:10 Pulse Rate 70 Respiratory Rate Blood Pressure 115/80 Blood Pressure [Left Arm] Blood Pressure [Right Arm] Pulse Oximetry 96 93 93 Oxygen Delivery 02/14/25 22:15 02/14/25 22:20 02/14/25 22:25 Pulse Rate 67 Respiratory Rate Blood Pressure 125/81 Blood Pressure [Left Arm] Blood Pressure [Right Arm] Pulse Oximetry 94 95 94 Oxygen Delivery 02/14/25 22:30 02/14/25 22:35 02/14/25 22:40 Pulse Rate 73 Respiratory Rate Blood Pressure 117/74 Blood Pressure [Left Arm] Blood Pressure [Right Arm] Pulse Oximetry 94 97 94 Oxygen Delivery 02/14/25 22:45 02/14/25 22:50 02/14/25 22:55 Pulse Rate 66 Respiratory Rate Blood Pressure 130/82 Blood Pressure [Left Arm] Blood Pressure [Right Arm] Pulse Oximetry 97 93 94 Oxygen Delivery 02/14/25 23:00 02/14/25 23:05 02/14/25 23:10 Pulse Rate 63 Respiratory Rate Blood Pressure 116/67 Blood Pressure [Left Arm] Blood Pressure [Right Arm] Pulse Oximetry 93 93 93 Oxygen Delivery 02/14/25 23:15 02/14/25 23:20 02/14/25 23:25 Pulse Rate 62 Respiratory Rate Blood Pressure 105/60 Blood Pressure [Left Arm] Blood Pressure [Right Arm] Pulse Oximetry 93 93 94 Oxygen Delivery 02/14/25 23:30 02/14/25 23:30 02/14/25 23:35 Pulse Rate 64 64 Respiratory Rate 15 Blood Pressure 106/64 106/64 Blood Pressure [Left Arm] Blood Pressure [Right Arm] Pulse Oximetry 93 93 92 Oxygen Delivery 02/14/25 23:40 02/14/25 23:45 02/14/25 23:50 Pulse Rate 60 Respiratory Rate Blood Pressure 112/59 L Blood Pressure [Left Arm] Blood Pressure [Right Arm] Pulse Oximetry 95 93 94 Oxygen Delivery 02/14/25 23:55 02/15/25 00:00 02/15/25 00:05 Pulse Rate 65 Respiratory Rate Blood Pressure 101/56 L Blood Pressure [Left Arm] Blood Pressure [Right Arm] Pulse Oximetry 92 93 92 Oxygen Delivery 02/15/25 00:10 02/15/25 00:15 02/15/25 00:20 Pulse Rate 64 Respiratory Rate Blood Pressure 109/59 L Blood Pressure [Left Arm] Blood Pressure [Right Arm] Pulse Oximetry 92 93 92 Oxygen Delivery 02/15/25 00:25 02/15/25 00:30 02/15/25 00:35 Pulse Rate 68 Respiratory Rate Blood Pressure 112/66 Blood Pressure [Left Arm] Blood Pressure [Right Arm] Pulse Oximetry 93 94 93 Oxygen Delivery 02/15/25 00:40 02/15/25 00:45 02/15/25 00:50 Pulse Rate 78 Respiratory Rate Blood Pressure 130/75 Blood Pressure [Left Arm] Blood Pressure [Right Arm] Pulse Oximetry 93 94 94 Oxygen Delivery 02/15/25 00:55 02/15/25 01:00 02/15/25 01:05 Pulse Rate 70 Respiratory Rate Blood Pressure 110/62 Blood Pressure [Left Arm] Blood Pressure [Right Arm] Pulse Oximetry 93 93 94 Oxygen Delivery 02/15/25 01:10 02/15/25 01:15 02/15/25 01:20 Pulse Rate 67 Respiratory Rate Blood Pressure 106/63 Blood Pressure [Left Arm] Blood Pressure [Right Arm] Pulse Oximetry 93 93 93 Oxygen Delivery 02/15/25 01:25 02/15/25 01:30 02/15/25 01:35 Pulse Rate 67 Respiratory Rate Blood Pressure 104/64 Blood Pressure [Left Arm] Blood Pressure [Right Arm] Pulse Oximetry 93 93 93 Oxygen Delivery 02/15/25 01:40 02/15/25 01:45 02/15/25 01:50 Pulse Rate 65 Respiratory Rate Blood Pressure 110/66 Blood Pressure [Left Arm] Blood Pressure [Right Arm] Pulse Oximetry 94 94 94 Oxygen Delivery 02/15/25 01:55 02/15/25 02:00 02/15/25 02:05 Pulse Rate 68 Respiratory Rate Blood Pressure 107/70 Blood Pressure [Left Arm] Blood Pressure [Right Arm] Pulse Oximetry 93 93 93 Oxygen Delivery 02/15/25 02:10 02/15/25 02:15 02/15/25 02:20 Pulse Rate 68 Respiratory Rate Blood Pressure 105/66 Blood Pressure [Left Arm] Blood Pressure [Right Arm] Pulse Oximetry 94 94 95 Oxygen Delivery 02/15/25 02:25 02/15/25 02:30 02/15/25 02:35 Pulse Rate 66 Respiratory Rate Blood Pressure 111/70 Blood Pressure [Left Arm] Blood Pressure [Right Arm] Pulse Oximetry 94 94 95 Oxygen Delivery 02/15/25 02:40 02/15/25 02:45 02/15/25 02:50 Pulse Rate Respiratory Rate Blood Pressure Blood Pressure [Left Arm] Blood Pressure [Right Arm] Pulse Oximetry 98 98 100 Oxygen Delivery 02/15/25 02:55 02/15/25 03:00 02/15/25 03:05 Pulse Rate 77 Respiratory Rate Blood Pressure 110/72 Blood Pressure [Left Arm] Blood Pressure [Right Arm] Pulse Oximetry 100 99 100 Oxygen Delivery 02/15/25 03:10 02/15/25 03:15 02/15/25 03:20 Pulse Rate 78 Respiratory Rate Blood Pressure 115/70 Blood Pressure [Left Arm] Blood Pressure [Right Arm] Pulse Oximetry 99 99 100 Oxygen Delivery 02/15/25 03:25 02/15/25 03:30 02/15/25 03:35 Pulse Rate 82 Respiratory Rate Blood Pressure 112/70 Blood Pressure [Left Arm] Blood Pressure [Right Arm] Pulse Oximetry 97 96 96 Oxygen Delivery 02/15/25 03:40 02/15/25 03:45 02/15/25 03:50 Pulse Rate 76 Respiratory Rate Blood Pressure 101/63 Blood Pressure [Left Arm] Blood Pressure [Right Arm] Pulse Oximetry 96 96 95 Oxygen Delivery 02/15/25 03:55 02/15/25 04:00 02/15/25 04:05 Pulse Rate 76 Respiratory Rate Blood Pressure 99/68 L Blood Pressure [Left Arm] Blood Pressure [Right Arm] Pulse Oximetry 95 95 95 Oxygen Delivery 02/15/25 04:10 02/15/25 04:15 02/15/25 04:20 Pulse Rate 70 Respiratory Rate Blood Pressure 99/64 L Blood Pressure [Left Arm] Blood Pressure [Right Arm] Pulse Oximetry 95 95 94 Oxygen Delivery 02/15/25 04:25 02/15/25 04:30 02/15/25 04:35 Pulse Rate 70 Respiratory Rate Blood Pressure 95/62 L Blood Pressure [Left Arm] Blood Pressure [Right Arm] Pulse Oximetry 97 96 95 Oxygen Delivery 02/15/25 04:40 02/15/25 04:45 02/15/25 04:50 Pulse Rate 83 Respiratory Rate Blood Pressure 102/60 Blood Pressure [Left Arm] Blood Pressure [Right Arm] Pulse Oximetry 95 95 96 Oxygen Delivery 02/15/25 04:55 02/15/25 05:00 02/15/25 05:05 Pulse Rate 83 Respiratory Rate Blood Pressure 105/69 Blood Pressure [Left Arm] Blood Pressure [Right Arm] Pulse Oximetry 96 96 95 Oxygen Delivery 02/15/25 05:10 02/15/25 05:15 02/15/25 05:20 Pulse Rate 77 Respiratory Rate Blood Pressure 98/65 L Blood Pressure [Left Arm] Blood Pressure [Right Arm] Pulse Oximetry 95 96 96 Oxygen Delivery 02/15/25 05:25 02/15/25 05:30 02/15/25 05:38 Pulse Rate 69 Respiratory Rate Blood Pressure 110/59 L Blood Pressure [Left Arm] Blood Pressure [Right Arm] Pulse Oximetry 96 95 99 Oxygen Delivery 02/15/25 05:43 02/15/25 05:45 02/15/25 05:48 Pulse Rate 86 Respiratory Rate Blood Pressure 109/69 Blood Pressure [Left Arm] Blood Pressure [Right Arm] Pulse Oximetry 100 99 Oxygen Delivery 02/15/25 05:53 02/15/25 05:58 02/15/25 06:00 Pulse Rate 82 Respiratory Rate Blood Pressure 110/73 Blood Pressure [Left Arm] Blood Pressure [Right Arm] Pulse Oximetry 99 99 Oxygen Delivery 02/15/25 06:03 02/15/25 06:08 02/15/25 06:13 Pulse Rate Respiratory Rate Blood Pressure Blood Pressure [Left Arm] Blood Pressure [Right Arm] Pulse Oximetry 99 99 99 Oxygen Delivery 02/15/25 06:15 02/15/25 06:18 02/15/25 06:23 Pulse Rate 86 Respiratory Rate Blood Pressure 109/80 Blood Pressure [Left Arm] Blood Pressure [Right Arm] Pulse Oximetry 99 95 Oxygen Delivery 02/15/25 06:28 02/15/25 06:30 02/15/25 06:33 Pulse Rate 77 Respiratory Rate Blood Pressure 108/71 Blood Pressure [Left Arm] Blood Pressure [Right Arm] Pulse Oximetry 94 93 Oxygen Delivery 02/15/25 06:38 02/15/25 06:43 02/15/25 06:45 Pulse Rate 73 Respiratory Rate Blood Pressure 108/67 Blood Pressure [Left Arm] Blood Pressure [Right Arm] Pulse Oximetry 93 94 Oxygen Delivery 02/15/25 06:48 02/15/25 06:53 02/15/25 06:58 Pulse Rate Respiratory Rate Blood Pressure Blood Pressure [Left Arm] Blood Pressure [Right Arm] Pulse Oximetry 93 92 91 Oxygen Delivery 02/15/25 07:00 02/15/25 07:03 02/15/25 07:08 Pulse Rate 73 Respiratory Rate Blood Pressure 123/68 Blood Pressure [Left Arm] Blood Pressure [Right Arm] Pulse Oximetry 92 93 Oxygen Delivery 02/15/25 07:13 02/15/25 07:15 02/15/25 07:18 Pulse Rate 77 Respiratory Rate Blood Pressure 109/80 Blood Pressure [Left Arm] Blood Pressure [Right Arm] Pulse Oximetry 91 93 Oxygen Delivery 02/15/25 07:23 02/15/25 07:28 02/15/25 07:30 Pulse Rate 76 Respiratory Rate Blood Pressure 115/75 Blood Pressure [Left Arm] Blood Pressure [Right Arm] Pulse Oximetry 94 98 Oxygen Delivery 02/15/25 07:33 02/15/25 07:35 02/15/25 07:38 Pulse Rate Respiratory Rate Blood Pressure Blood Pressure [Left Arm] Blood Pressure [Right Arm] Pulse Oximetry 94 93 Oxygen Delivery Room Air 02/15/25 07:43 02/15/25 07:48 02/15/25 07:53 Pulse Rate Respiratory Rate Blood Pressure Blood Pressure [Left Arm] Blood Pressure [Right Arm] Pulse Oximetry 92 97 95 Oxygen Delivery 02/15/25 07:58 02/15/25 08:03 02/15/25 08:08 Pulse Rate Respiratory Rate Blood Pressure Blood Pressure [Left Arm] Blood Pressure [Right Arm] Pulse Oximetry 94 97 96 Oxygen Delivery 02/15/25 08:13 02/15/25 08:15 02/15/25 08:18 Pulse Rate 79 Respiratory Rate Blood Pressure 110/72 Blood Pressure [Left Arm] Blood Pressure [Right Arm] Pulse Oximetry 96 97 Oxygen Delivery 02/15/25 08:23 02/15/25 08:28 02/15/25 08:30 Pulse Rate 85 Respiratory Rate Blood Pressure 103/62 Blood Pressure [Left Arm] Blood Pressure [Right Arm] Pulse Oximetry 93 96 Oxygen Delivery 02/15/25 08:33 02/15/25 08:38 02/15/25 08:43 Pulse Rate Respiratory Rate Blood Pressure Blood Pressure [Left Arm] Blood Pressure [Right Arm] Pulse Oximetry 95 96 95 Oxygen Delivery 02/15/25 08:45 02/15/25 08:48 02/15/25 08:53 Pulse Rate 80 Respiratory Rate Blood Pressure 115/71 Blood Pressure [Left Arm] Blood Pressure [Right Arm] Pulse Oximetry 96 95 Oxygen Delivery 02/15/25 08:58 02/15/25 09:00 02/15/25 09:03 Pulse Rate 85 Respiratory Rate Blood Pressure 113/79 Blood Pressure [Left Arm] Blood Pressure [Right Arm] Pulse Oximetry 95 96 Oxygen Delivery 02/15/25 09:10 02/15/25 09:15 02/15/25 09:20 Pulse Rate 81 Respiratory Rate Blood Pressure 107/72 Blood Pressure [Left Arm] Blood Pressure [Right Arm] Pulse Oximetry 99 98 97 Oxygen Delivery 02/15/25 09:25 02/15/25 09:30 02/15/25 09:35 Pulse Rate Respiratory Rate Blood Pressure Blood Pressure [Left Arm] Blood Pressure [Right Arm] Pulse Oximetry 98 99 98 Oxygen Delivery 02/15/25 09:40 Pulse Rate Respiratory Rate Blood Pressure Blood Pressure [Left Arm] Blood Pressure [Right Arm] Pulse Oximetry 99 Oxygen Delivery Exam Const: Other: Well-developed, well-nourished female in no acute distress. Resp: Other: Lungs: Normal respiratory effort. Clear to auscultation bilaterally. Cardio: Other: Heart: Regular rate and rhythm with normal S1-S2. GI: Other: ABD: Soft, nontender, nondistended, fundus firm. No guarding or rebound tenderness. No hepatosplenomegaly. No RUQ or midepigastric tenderness. : Other: Deferred. Back/Spine/Pelvis: Other: Back: No CVA tenderness. Skin: Other: Skin: No lesions, rashes or ulcers noted. Extrem: Other: Extremities: nontender with no edema Psych: Other: Mental status grossly normal, with normal mood and affect. H&P: Results Labs Labs: Short CBC 02/14/25 Range/Units 18:46 WBC 8.8 (4.5-10.0) K/mm3 Hgb 13.4 (12.0-15.0) g/dL Hct 41.4 (37.0-47.0) % Plt Count 269 (150-375) k/mm3 BMP 02/14/25 18:46 Sodium 139 Potassium 4.4 Chloride 109 H Carbon Dioxide 24 BUN 14 Creatinine 0.64 L Glucose 90 Calcium 8.7 Liver Function 02/14/25 Range/Units 18:46 Total Bilirubin 0.4 (0.2-1.3) mg/dL AST 26 (14-36) U/L ALT 27 (6-35) U/L Alkaline Phosphatase 104 (38-126) U/L Albumin 3.5 (3.5-5.1) g/dL Assessment and Plan Assessment and plan (1) Preeclampsia in period: Code(s): O14.95 - Unspecified pre-eclampsia, complicating the puerperium Status: Acute Assessment and Plan: A: PPD#8, with musculoskeletal pain in neck, and likely preeclampsia. P: Continue magnesium for 24 h. Continue ibuprofen for neck pain. Continue Procardia XL 30 mg daily, but watch for low bp symptoms. Will monitor closely. (2) Neck pain, musculoskeletal: Code(s): M54.2 - Cervicalgia Status: Acute
--- NOTE | 2025-02-15 19:40 | PC.NURSE ---
Magnesium d/c'd. VSS. Pt denies BAUMAN, Shortness of breath or visual changes. Will continue to monitor
[2025-02-16] VITALS (92 sets, daily range): BP systolic 103–146; BP diastolic 53–83; PULSE 61–101; RESP 16–17; TEMP 36.8–37.3; O2SAT 93–98
--- NOTE | 2025-02-16 07:22 | P.PNOB_ITS ---
OB - PN: Subj Subjective Date/time seen: 02/16/25 07:22 Narrative: Neck pain much better. BP has been stable. Magnesium was stopped last evening. Would like to go home. OB - PN: Obj Data Labs 02/14/25 18:46 02/14/25 18:46 OB - PN A/P Plan Comments: A: preeclampsia, resolving. Musculoskeletal neck pain, improving. P: Home to continue Procardia XL 30 mg po daily and f/u 1-2 weeks in the office for bp check. Exam 2 Psych: Other: AVSS Urine output great ABD soft, nontender, fundus firm EXT nontender, no edema. Lilibeth's sign negative.
--- NOTE | 2025-02-16 07:26 | PM.DS ---
DS: Admitting Diagnosis Discharge Date 02/16/25 Admitting Diagnosis preeclampsia DS: Discharge Diagnosis Discharge Diagnosis (1) Preeclampsia in period: Code(s): O14.95 - Unspecified pre-eclampsia, complicating the puerperium Status: Acute DS: Summary Hospital Course Hospital Course: She was admitted with neck pain / headache and elevated bp readings. She received magnesium sulfate IV. BP stabilized and her symptoms resolved. She was able to go home on Procardia XL 30 mg po daily. Time Spent with Patient Time attestation: Total time spent providing and/or coordinating discharge services: Discharge Plan Discharge Patient Disposition: Home Discharge Instructions: Call or return if temperature above 100.4? F, increased abdominal pain, increased vaginal bleeding or any new problems. Check bp once daily and record. Call if >160/100 or <90/60. Patient Language: Malagasy Follow-up/Referrals: Regan Hernandez MD [Physician, [employer] ENG[employer]ERING TECHNICIAN] - Call for Appointment Discharge Orders: Discharge Order (Routine); Ordered 02/16/25 Ordered By: Regan Hernandez Discharge Medications: New nifedipine [Procardia XL] 30 mg tablet extended release 24hr 30 mg PO DAILY Qty: 30 1RF Continued calcium carbonate [Tums] 200 mg calcium (500 mg) tablet,chewable 200 mg PO BID ibuprofen 600 mg tablet 600 mg PO Q6H PRN (Reason: cramps) Qty: 30 0RF prenat.vits,brian,[id number] Tablet 1 tablet PO HS cyclobenzaprine 10 mg tablet 10 mg PO TID PRN (Reason: muscle spasm) Qty: 20 0RF oxycodone-acetaminophen [Percocet] 5-325 mg tablet 1 tablet PO Q6H PRN (Reason: pain) Qty: 20 0RF No Action cephalexin 500 mg capsule 500 mg PO Q6H 7 Days Qty: 28 0RF
== END 2025-02-16 09:07 | disposition home or self-care (01) ==
LOC: ANHOBOP 17:32 → ANHOBPP 17:33
PROVIDERS: Obstetrics & Gynecology; PCP Family Medicine; Visit Provider Obstetrics & Gynecology
DX: O13.9 Gestational [pregnancy-induced] hypertension without significant proteinuria, unspecified trimester (principal); Z3A.00 Weeks of gestation of pregnancy not specified
CPT/HCPCS: 36415; 80053; 84550; 85025; A9270; J3475; J7120